=== PATIENT | male | born 1960 | race Two or more races ===

== ENCOUNTER 2023-08-10 21:28 | Emergency (ER) | payer MEDICARE, OTHER ==
[~2023-08-10] VITALS: Ht 182.9 cm; Wt 169.4 kg
[2023-08-10] MEDS ORDERED: COCAINE HCL 4% TOP SOL 4ML TOP ONE ×2 (22:14→22:15)
[2023-08-10] MEDS ORDERED: OXYMETAZOLINE HCL 0.05 % NASAL SPRAY 15ML EACHNOSTRI ONE (22:15)
[2023-08-10 22:41] LABS: Basophils # (auto) 0.1 10 ^3/uL (0-0.2); Basophils % (auto) 1.1 % (0.0-2.0); Eosinophils # (auto) 0.2 10 ^3/uL (0-0.8); Eosinophils % (auto) 2.5 % (0.0-7.0); Hematocrit 31.6 % (41.0-53.0); Hemoglobin 10.3 g/dL (13.5-17.5); Lymphocytes # (auto) 0.7 10 ^3/uL (0.4-5.4); Lymphocytes % (auto) 10.3 % (10.0-50.0); Mean Corpuscular Hemoglobin 29.3 pg (28.0-32.0); Mean Corpuscular Hgb Conc. 32.6 g/dL (32.0-36.0); Monocytes # (auto) 0.6 10 ^3/uL (0-1.3); Monocytes % (auto) 8.3 % (0.0-12.0); Neutrophils # (auto) 5.6 10 ^3/uL (1.6-8.6); Neutrophils % (auto) 77.8 % (37.0-80.0); Red Blood Cells 3.51 10^6/uL (4.5-5.90); Red Cell Distribution Width 18.9 % (11.8-14.3); White Blood Cell 7.1 10^3/uL (4.4-10.8)
[2023-08-10 22:53] LABS: INR 3.6 (0.9-1.15); Partial Thromboplastin Time 40.6 SEC (24.5-34.5); Prothrombin Time 34.8 sec (9.3-11.8)
[2023-08-10 22:55] LABS: Alanine Aminotransferase 37 U/L (7-40); Albumin 4.7 g/dL (3.2-4.8); Alkaline Phosphatase 67 U/L (46-116); Anion Gap 7 (5-15); Aspartate Aminotransferase 30 U/L (13-40); BUN/Creatinine Ratio 13.5 (10.0-20.0); Bilirubin, Total 1.2 mg/dL (0.2-1.0); Blood Urea Nitrogen 21 mg/dL (9-23); Calcium 9.2 mg/dL (8.7-10.4); Carbon Dioxide 27 mmol/L (20-30); Chloride 106 mmol/L (98-107); Glucose 124 mg/dL (74-106); Potassium 3.3 mmol/L (3.5-5.1); Sodium 140 mmol/L (136-145)
[2023-08-10 22:56] LABS: Total Protein 7.7 g/dL (5.7-8.2)
[2023-08-11] MEDS ORDERED: PHYTONADIONE (VIT K)10 MG/ML 1ML VIAL SUBCUT ONE (00:45)
[2023-08-11] MEDS ORDERED: POTASSIUM EFFERVESENT TAB 25 MEQ PO ONE (01:00)
[2023-08-11 01:36] VITALS: BP 125/72; PULSE 57; RESP 18; TEMP 98; O2SAT 96
== END 2023-08-11 01:41 | disposition home or self-care (01) ==
LOC: ER 21:28
DX: R04.0 Epistaxis (principal); D64.9 Anemia, unspecified; E78.5 Hyperlipidemia, unspecified; R79.89 Other specified abnormal findings of blood chemistry; I10 Essential (primary) hypertension; E11.9 Type 2 diabetes mellitus without complications
CPT/HCPCS: 30901; 36415; 80053; 85025; 85610; 85730; 93005; 96372; 99284; J3430

== ENCOUNTER 2023-08-13 08:07 | Emergency (ER) | payer MEDICARE, OTHER ==
[~2023-08-13] VITALS: Ht 182.9 cm; Wt 165.4 kg
[2023-08-13 08:18] VITALS: BP 133/62; PULSE 57; RESP 20; TEMP 98; O2SAT 95
[2023-08-13] MEDS ORDERED: OXYMETAZOLINE HCL 0.05 % NASAL SPRAY 15ML EACHNOSTRI ONE (09:15)
== END 2023-08-13 09:54 | disposition home or self-care (01) ==
LOC: ER 08:07
DX: T85.898D Other specified complication of other internal prosthetic devices, implants and grafts, subsequent encounter (principal); E11.9 Type 2 diabetes mellitus without complications; I10 Essential (primary) hypertension; Z88.8 Allergy status to other drugs, medicaments and biological substances

== ENCOUNTER → 2023-08-20 | Outpatient (CLI) | payer MEDICARE | END | disposition home or self-care (01) | LOC: LAB 10:28 | PROVIDERS: ATTEND Internal Medicine | DX: E11.42 Type 2 diabetes mellitus with diabetic polyneuropathy (principal); I48.0 Paroxysmal atrial fibrillation | CPT/HCPCS: 36415; 84132 ==

== ENCOUNTER → 2023-09-07 | Outpatient (CLI) | payer MEDICARE ==
[2023-09-07 11:28] LABS: Urine Bacteria NONE SEEN /hpf (None Seen); Urine Blood Negative /uL (Negative); Urine Clarity Clear (Clear); Urine Color Colorless (Yellow); Urine Hyaline Cast FEW /lpf (0 - 2); Urine Protein, UAD Negative (Negative); Urine Specific Gravity 1.008 (1.001-1.035); Urine Urobilinogen Normal (Negative); Urine WBC 1 /hpf (0 - 3); Urine pH 5.5 (5.0-8.0)
[2023-09-07 12:21] LABS: Alanine Aminotransferase 73 U/L (7-40); Albumin 4.4 g/dL (3.2-4.8); Alkaline Phosphatase 53 U/L (46-116); Anion Gap 7 (5-15); Aspartate Aminotransferase 50 U/L (13-40); BUN/Creatinine Ratio 12.2 (10.0-20.0); Bilirubin, Total 0.5 mg/dL (0.2-1.0); Blood Urea Nitrogen 16 mg/dL (9-23); Calcium 9.3 mg/dL (8.5-10.1); Carbon Dioxide 27 mmol/L (20-30); Chloride 107 mmol/L (98-107); Glucose 139 mg/dL (74-106); Potassium 3.7 mmol/L (3.5-5.1); Sodium 141 mmol/L (136-145)
== END | disposition home or self-care (01) ==
LOC: LAB 10:40
PROVIDERS: ATTEND Internal Medicine
DX: E11.22 Type 2 diabetes mellitus with diabetic chronic kidney disease (principal); N18.9 Chronic kidney disease, unspecified
CPT/HCPCS: 36415; 80053; 81001; 82043; 83036

== ENCOUNTER → 2023-11-02 | Outpatient (CLI) | payer MEDICARE ==
[2023-11-02 06:51] LABS: Urine Epithelial Cast None Seen /hpf (<5)
[2023-11-02 07:11] LABS: Basophils # (auto) 0.1 10 ^3/uL (0-0.2); Eosinophils # (auto) 0.2 10 ^3/uL (0-0.8); Eosinophils % (auto) 2.7 % (0.0-7.0); Hematocrit 36.3 % (41.0-53.0); Lymphocytes # (auto) 0.7 10 ^3/uL (0.4-5.4); Lymphocytes % (auto) 12.8 % (10.0-50.0); Mean Corpuscular Hemoglobin 30.1 pg (28.0-32.0); Mean Corpuscular Hgb Conc. 32.9 g/dL (32.0-36.0); Mean Corpuscular Volume 91.3 fL (80.0-100.0); Monocytes # (auto) 0.7 10 ^3/uL (0-1.3); Monocytes % (auto) 12.1 % (0.0-12.0); Neutrophils # (auto) 4.1 10 ^3/uL (1.6-8.6); Neutrophils % (auto) 71.4 % (37.0-80.0); Nucleated Red Blood Cells % 0.1 %; Red Blood Cells 3.98 10^6/uL (4.5-5.90); Red Cell Distribution Width 16.7 % (11.8-14.3); White Blood Cell 5.7 10^3/uL (4.4-10.8)
[2023-11-02 07:14] LABS: INR 2.12 (0.9-1.15); Partial Thromboplastin Time 35.2 SEC (24.5-34.5); Prothrombin Time 21.2 sec (9.3-11.8)
[2023-11-02 07:30] LABS: Urine Bacteria NONE SEEN /hpf (None Seen); Urine Blood Negative /uL (Negative); Urine Clarity HAZY (Clear); Urine Color Yellow (Yellow); Urine Protein, UAD 1+ (Negative); Urine Specific Gravity 1.022 (1.001-1.035); Urine Urobilinogen Normal (Negative); Urine WBC 7 /hpf (0 - 3)
[2023-11-02 07:44] LABS: Alanine Aminotransferase 50 U/L (7-40); Albumin 4.5 g/dL (3.2-4.8); Alkaline Phosphatase 58 U/L (46-116); Anion Gap 7 (5-15); Aspartate Aminotransferase 31 U/L (13-40); BUN/Creatinine Ratio 13.8 (10.0-20.0); Bilirubin, Total 0.5 mg/dL (0.2-1.0); Blood Urea Nitrogen 19 mg/dL (9-23); Calcium 9.5 mg/dL (8.5-10.1); Carbon Dioxide 27 mmol/L (20-30); Chloride 106 mmol/L (98-107); Cholesterol 118 mg/dL (< 200); Glucose 110 mg/dL (74-106); HDL Cholesterol 47 mg/dL (40-59); LDL Cholesterol 58 mg/dL (< 100); Potassium 4.1 mmol/L (3.5-5.1); Sodium 140 mmol/L (136-145); Total Protein 7.2 g/dL (5.7-8.2); Triglycerides 108 mg/dL (< 150)
== END | disposition home or self-care (01) ==
LOC: LAB 06:41
PROVIDERS: ATTEND Internal Medicine
DX: E11.22 Type 2 diabetes mellitus with diabetic chronic kidney disease (principal); N18.9 Chronic kidney disease, unspecified; I48.0 Paroxysmal atrial fibrillation; E55.9 Vitamin D deficiency, unspecified
CPT/HCPCS: 36415; 80053; 80061; 81001; 82043; 82274; 82306; 83036; 84443; 85025; 85610; 85730

== ENCOUNTER → 2023-11-17 | Outpatient (CLI) | payer MEDICARE ==
[2023-11-17 08:25] LABS: Basophils # (auto) 0.1 10 ^3/uL (0-0.2); Basophils % (auto) 1.1 % (0.0-2.0); Eosinophils # (auto) 0.2 10 ^3/uL (0-0.8); Eosinophils % (auto) 3.2 % (0.0-7.0); Hematocrit 35.3 % (41.0-53.0); Hemoglobin 11.4 g/dL (13.5-17.5); Lymphocytes # (auto) 0.5 10 ^3/uL (0.4-5.4); Lymphocytes % (auto) 9.9 % (10.0-50.0); Mean Corpuscular Hemoglobin 29.7 pg (28.0-32.0); Mean Corpuscular Hgb Conc. 32.3 g/dL (32.0-36.0); Mean Corpuscular Volume 91.8 fL (80.0-100.0); Monocytes # (auto) 0.5 10 ^3/uL (0-1.3); Monocytes % (auto) 9.9 % (0.0-12.0); Neutrophils # (auto) 3.8 10 ^3/uL (1.6-8.6); Neutrophils % (auto) 75.9 % (37.0-80.0); Nucleated Red Blood Cells % 0.1 %; Red Blood Cells 3.84 10^6/uL (4.5-5.90); Red Cell Distribution Width 16.7 % (11.8-14.3)
[2023-11-17 08:43] LABS: INR 1.44 (0.9-1.15); Prothrombin Time 14.8 sec (9.3-11.8)
[2023-11-17 08:53] LABS: Alanine Aminotransferase 47 U/L (7-40); Albumin 4.2 g/dL (3.2-4.8); Alkaline Phosphatase 53 U/L (46-116); Anion Gap 6 (5-15); Aspartate Aminotransferase 35 U/L (13-40); BUN/Creatinine Ratio 14.6 (10.0-20.0); Bilirubin, Total 0.8 mg/dL (0.2-1.0); Blood Urea Nitrogen 15 mg/dL (9-23); Calcium 9.3 mg/dL (8.5-10.1); Carbon Dioxide 27 mmol/L (20-30); Chloride 109 mmol/L (98-107); Glucose 119 mg/dL (74-106); Sodium 142 mmol/L (136-145); Total Protein 6.8 g/dL (5.7-8.2)
[2023-11-17 08:54] LABS: % Iron Saturation 21.2 % (20-55)
[2023-11-17 08:57] LABS: Carcinoembryonic Antigen 3.66 ng/mL (<=5.0); Folate (Folic Acid) 15.55 ng/mL (>5.38)
== END | disposition home or self-care (01) ==
LOC: LAB 07:49
PROVIDERS: ATTEND Internal Medicine Gastroenterology
DX: D64.9 Anemia, unspecified (principal); R97.8 Other abnormal tumor markers; D69.9 Hemorrhagic condition, unspecified
CPT/HCPCS: 36415; 80053; 82274; 82378; 82607; 82746; 83540; 83550; 85025; 85610

== ENCOUNTER 2024-10-01 09:55 | Emergency (ER) | payer MEDICARE ==
[~2024-10-01] VITALS: Ht 182.9 cm; Wt 162.0 kg
--- NOTE | 2024-10-01 11:14 | ED.PDOC ---
History of Present Illness HPI Comments This 64-year-old male presents secondary to now resolved nosebleed the left Raymond. He has had 3 over the last few weeks. He is on warfarin. As such, he presents here. He has no other complaints such as chest pain no shortness a breath, fever, chills, sweats, nausea or vomiting. Denies any palliative or pro vocative factors. Denies modifying factors. Denies radiation of his symptoms. Denies pain. Chief Complaint: Epistaxis Time Seen by MD: 10:12 Primary Care Provider: RAFAEL Allergies: Coded Allergies: Gabapentin (Verified Allergy, Unknown, 08/13/23) Latex (Verified Allergy, Unknown, 08/13/23) Mode of Arrival: Ambulatory Past Medical History PAST MEDICAL HISTORY: DM, HTN Surgical History: Denies all surgeries Family History Family History: Reviewed,noncontributory to illness Social History Smoker: Non-Smoker Alcohol: Denies ETOH Use Drugs: Denies Drug Use Lives In: Home Constitutional: denies: chills, diaphoresis, fatigue, fever, malaise, sweats, weakness, others EENTM: reports: nasal discharge, nose bleeding; denies: blurred vision, double vision, ear bleeding, ear discharge, ear drainage, ear pain, ear ringing, eye pain, eye redness, hearing loss, mouth pain, mouth swelling, nose congestion, nose pain, photophobia, tearing, throat pain, throat swelling, voice changes, others Respiratory: denies: cough, hemoptysis, orthopnea, SOB at rest, shortness of breath, SOB with excertion, stridor, wheezing, others Cardiovascular: reports: edema, left arm pain; denies: chest pain, diaphoresis, Dyspnea on exertion, irregular heart beat, lightheadedness, palpitations, PND, syncope, others Gastrointestinal: denies: abdominal pain, constipated, diarrhea, dysphagia, difficulty swallowing, hematemesis, melena, nausea, poor appetite, poor fluid intake, vomiting, others Genitourinary: denies: dysuria, frequency Neurological: denies: dizziness, fainting, headache, left sided numbness, left sided weakness, numbness, paresthesia, pre-existing deficit, right sided numbness, right sided weakness, seizure, speech problems, tingling, tremors, we akness, others Musculoskeletal: denies: back pain, gout, joint pain, joint swelling, muscle pain, muscle stiffness Integumetry: denies: bruises, change in color, lesions, wounds Allergic/Immunocompromised: denies: Difficulty Healing Hematologic/Lymphatic: denies: anemia Psychiatric: denies: anxiety, bipolar disorder Unable to Obtain due to: Altered Mental Status, Dementia Physical Exam General Appearance: No Apparent Distress, Normal HEENT: Normal ENT Inspection, Pharynx Normal, TMs Normal, NOT DONE Neck: Normal, Supple Respiratory: Chest Non-Tender, Lungs Clear, No Accessory Muscle Use, No Respiratory Distress, Normal Breath Sounds Cardiovascular: No Edema, No JVD, No Murmur, No Gallop, Normal Peripheral Pulses, Regular Rate/Rhythm Breast Exam: Deferred Gastrointestinal: Non Tender, Soft Genitalia: Deferred Pelvic: Deferred Rectal: Deferred Extremities: No calf tenderness, Normal capillary refill, Normal inspection, Normal range of motion, Non-tender, No pedal edema Neurologic: Alert, currency exchange specialist II-XII nml as Tested, No Motor Deficits, Normal Affect, Normal Mood, No Sensory Deficits Cerebellar Function: Normal Reflexes: NOT DONE Skin: Normal Color, Warm Lymphatic: NOT DONE Was a procedure done? Was a procedure done?: No Differential Dx Considerations may include: Anterior epistaxis, posterior epistaxis, mass, trauma X-Ray, Labs, Meds, VS Vital Signs Date Time Temp Pulse Resp B/P (MAP) Pulse Ox O2 Delivery O2 Flow Rate FiO2 10/01/24 10:11 97.8 67 19 120/76 (91) 92 Lab Test 10/01/24 10:43 Range/Units White Blood Count 7.2 4.4-10.8 10^3/uL Red Blood Count 3.40 L 4.5-5.90 10^6/uL Hemoglobin 10.5 L 13.5-17.5 g/dL Hematocrit 32.4 L 41.0-53.0 % Mean Corpuscular Volume 95.3 80.0-100.0 fL Mean Corpuscular Hemoglobin 30.8 28.0-32.0 pg Mean Corpuscular Hemoglobin Concent 32.3 32.0-36.0 g/dL Red Cell Distribution Width 17.5 H 11.8-14.3 % Platelet Count 142 140-450 10^3/uL Mean Platelet Volume 8.1 6.9-10.8 fL Neutrophils (%) (Auto) 83.8 H 37.0-80.0 % Lymphocytes (%) (Auto) 5.8 L 10.0-50.0 % Monocytes (%) (Auto) 6.6 0.0-12.0 % Eosinophils (%) (Auto) 3.1 0.0-7.0 % Basophils (%) (Auto) 0.7 0.0-2.0 % Neutrophils # (Auto) 6.0 1.6-8.6 10 ^3/uL Lymphocytes # (Auto) 0.4 0.4-5.4 10 ^3/uL Monocytes # (Auto) 0.5 0-1.3 10 ^3/uL Eosinophils # (Auto) 0.2 0-0.8 10 ^3/uL Basophils # (Auto) 0.1 0-0.2 10 ^3/uL Nucleated Red Blood Cells 0.0 % Prothrombin Time 19.2 H 9.3-11.8 sec Prothrombin Time INR 1.90 H 0.9-1.15 Sodium Level 143 136-145 mmol/L Potassium Level 4.1 3.5-5.1 mmol/L Chloride Level 110 H 98-107 mmol/L Carbon Dioxide Level 27 20-31 mmol/L Anion Gap 6 5-15 Blood Urea Nitrogen 18 9-23 mg/dL Creatinine 1.14 0.700-1.30 mg/dL Glomerular Filtration Rate Calc 72 >90 mL/min BUN/Creatinine Ratio 15.8 10.0-20.0 Serum Glucose 149 H 74-106 mg/dL Calcium Level 9.4 8.7-10.4 mg/dL Total Bilirubin 0.9 0.2-1.0 mg/dL Aspartate Amino Transferase (AST) 26 13-40 U/L Alanine Aminotransferase (ALT) 52 H 7-40 U/L Alkaline Phosphatase 61 46-116 U/L Total Protein 6.7 5.7-8.2 g/dL Albumin 4.0 3.2-4.8 g/dL X-Ray, Labs, Meds, VS Comment This 68-year-old male presents emergency room secondary to epistaxis now resolved. He was on warfarin. I was concerned the patient may have a substandard prolonged INR. However, is 1.9. Initially, the patient is not anemic. As he no longer has a nosebleed, he will be discharged home. He is asked to avoid touching his nose. He should follow up with PCP in the morning return to the ER for new/worrisome has worsening symptoms. Time of 1ST Reevaluation: 12:32 Reevaluation 1ST: Improved Patient Education/Counseling: Diagnosis, Treatment Family Education/Counseling: Diagnosis, Treatment Departure 1 Departure Time of Disposition: 12:25 Impression: Primary Impression: Acute anterior epistaxis Disposition: HOME / SELF CARE / HOMELESS Condition: Good Discharged With: Self, Spouse Critical Care Note Critical Care Time?: No Stability Stability form required: No Heart Score Heart Score: Heart Score Response (Comments) Value History N/A 0 EKG N/A 0 Age N/A 0 Risk Factors N/A 0 Troponin N/A 0 Total 0 VIVEK KAUR MD Oct 01, 2024 11:14
[2024-10-01 11:16] LABS: Basophils # (auto) 0.1 10 ^3/uL (0-0.2); Basophils % (auto) 0.7 % (0.0-2.0); Eosinophils # (auto) 0.2 10 ^3/uL (0-0.8); Eosinophils % (auto) 3.1 % (0.0-7.0); Hematocrit 32.4 % (41.0-53.0); Hemoglobin 10.5 g/dL (13.5-17.5); Lymphocytes # (auto) 0.4 10 ^3/uL (0.4-5.4); Lymphocytes % (auto) 5.8 % (10.0-50.0); Mean Corpuscular Hemoglobin 30.8 pg (28.0-32.0); Mean Corpuscular Hgb Conc. 32.3 g/dL (32.0-36.0); Mean Corpuscular Volume 95.3 fL (80.0-100.0); Monocytes # (auto) 0.5 10 ^3/uL (0-1.3); Monocytes % (auto) 6.6 % (0.0-12.0); Neutrophils % (auto) 83.8 % (37.0-80.0); Platelet Count (auto) 142 10^3/uL (140-450); Red Cell Distribution Width 17.5 % (11.8-14.3); White Blood Cell 7.2 10^3/uL (4.4-10.8)
[2024-10-01 11:32] LABS: Alkaline Phosphatase 61 U/L (46-116); Anion Gap 6 (5-15); Aspartate Aminotransferase 26 U/L (13-40); BUN/Creatinine Ratio 15.8 (10.0-20.0); Blood Urea Nitrogen 18 mg/dL (9-23); Calcium 9.4 mg/dL (8.7-10.4); Carbon Dioxide 27 mmol/L (20-31); Potassium 4.1 mmol/L (3.5-5.1); Sodium 143 mmol/L (136-145)
[2024-10-01 11:33] LABS: Alanine Aminotransferase 52 U/L (7-40); Bilirubin, Total 0.9 mg/dL (0.2-1.0); Chloride 110 mmol/L (98-107); Glucose 149 mg/dL (74-106); Total Protein 6.7 g/dL (5.7-8.2)
[2024-10-01 11:35] LABS: INR 1.9 (0.9-1.15); Prothrombin Time 19.2 sec (9.3-11.8)
[2024-10-01 14:09] VITALS: BP 122/60; PULSE 60; RESP 20; TEMP 97.8; O2SAT 100
== END 2024-10-01 14:11 | disposition home or self-care (01) ==
LOC: ER 09:55
DX: R04.0 Epistaxis (principal); I10 Essential (primary) hypertension; E11.9 Type 2 diabetes mellitus without complications; Z79.01 Long term (current) use of anticoagulants; Z88.8 Allergy status to other drugs, medicaments and biological substances
CPT/HCPCS: 36415; 80053; 85025; 85610

== ENCOUNTER 2024-11-22 13:48 | Inpatient (IN) | payer MEDICARE, OTHER ==
[~2024-11-22] VITALS: Ht 185.4 cm; Wt 148.1 kg
--- NOTE | 2024-11-22 14:21 | DVH ---
CHEST RADIOGRAPH Indication: sob Technique: Frontal and lateral view of the chest was obtained Comparison: None FINDINGS: Lines and Tubes: Median sternotomy. Cardiac loop recorder device. Lungs: Pulmonary vascular congestion Pleura: No effusion. No pneumothorax. Cardiomediastinal contours: Cardiomegaly Bones: Unremarkable IMPRESSION: Mild pulmonary vascular congestion.
--- NOTE | 2024-11-22 14:23 | ED.PDOC ---
SOB-HPI HPI Comments This is a 64-year-old male who in with chief complaint of shortness a breath. The patient states that he has been having worsening shortness a breath for approximately two months. He also has had some right leg swelling somewhat off and on. He has has a history of DVT in the past. He is now also having some chest tightness somewhat off and on. The patient denies any fever, chills, nausea, vomiting or diarrhea. He is currently on warfarin for the DVT. When the patient arrived he had an oxygen saturation of 84% on room air. The patient was immediately placed on 4 L nasal cannula and his oxygen saturation went up to 95%. He was able to ambulate but gets very winded when he walks. Chief Complaint: Shortness of Breath Time Seen by MD: 13:56 Primary Care Provider: RAFAEL Ponce notes: Nurses Notes, Medications, Allergies (Allergies listed above) Information Source: Patient Mode of Arrival: Ambulatory Severity: Moderate Timing: Weeks Duration: Since onset Context: At Rest PE Risk Factors: None History of: CHF Prehospital treatment: None Modifying Factors: Exertion, Laying flat Associated Signs and Symptoms: Chest Pain, Leg Swelling Quality: Pressure, Tightness Radiation: No Radiation Location: Substernal Past Medical History PAST MEDICAL HISTORY: CAD, CHF, DM, High Lipids, HTN Past Medical History (Other): Right leg DVT Surgical History: Appendectomy, CABG, PTCA, Tonsillectomy Surgical History (Other): Right knee surgery, cataract surgery, bladder surgery Family History Family History: Family hx of heart catherine Social History Smoker: Non-Smoker Alcohol: Denies ETOH Use Drugs: Denies Drug Use Lives In: Home Constitutional: denies: chills, diaphoresis, fatigue, fever, malaise, sweats, weakness, others EENTM: denies: blurred vision, double vision, ear bleeding, ear discharge, ear drainage, ear pain, ear ringing, eye pain, eye redness, hearing loss, mouth pain, mouth swelling, nasal discharge, nose bleeding, nose congestion, nose pain, photophobia, tearing, throat pain, throat swelling, voice changes, others Respiratory: reports: shortness of breath; denies: cough, hemoptysis, orthopnea, SOB at rest, SOB with excertion, stridor, wheezing, others Cardiovascular: reports: chest pain; denies: dizzy spells, diaphoresis, Dyspnea on exertion, edema, irregular heart beat, left arm pain, lightheadedness, palpitations, PND, syncope, others Gastrointestinal: denies: abdomen distended, abdominal pain, blood streaked bowels, constipated, diarrhea, dysphagia, difficulty swallowing, hematemesis, melena, nausea, poor appetite, poor fluid intake, rectal bleeding, rectal pain, vomiting, others Genitourinary: denies: burning, dysuria, flank pain, frequency, hematuria, incontinence, penile discharge, penile sore, pain, testicle pain, testicle swelling, urgency, others Neurological: reports: others (Right leg swelling); denies: dizziness, fainting, headache, left sided numbness, left sided weakness, numbness, paresthesia, pre-existing deficit, right sided numbness, right sided weakness, seizure, speech problems, tingling, tremors, weakness Musculoskeletal: denies: back pain, gout, joint pain, joint swelling, muscle pain, muscle stiffness, neck pain, others Integumetry: denies: bruises, change in color, change in hair/nails, dryness, laceration, lesions, lumps, rash, wounds, others Allergic/Immunocompromised: denies: Difficulty Healing, Frequent Infections, Hives, Itching, others Hematologic/Lymphatic: denies: anemia, blood clots, easy bleeding, easy bruising, swollen glands, others Endocrine: denies: excessive hunger, excessive sweating, excessive thirst, excessive urination, flushing, intolerance to cold, intolerance to heat, unexplained weight gain, unexplained weight loss, others Psychiatric: denies: anxiety, bipolar disorder, depression, hopeless, panic disorder, schizophrenia, sleepless, suicidal, others Physical Exam General Appearance: Moderate Distress, Obese HEENT: Normal ENT Inspection, Pharynx Normal, TMs Normal Neck: Full Range of Motion, Non-Tender, Normal, Normal Inspection Respiratory: Chest Non-Tender, Lungs Clear, No Accessory Muscle Use, No Respiratory Distress, Normal Breath Sounds Cardiovascular: No Edema, No JVD, No Murmur, No Gallop, Normal Peripheral Pulses, Regular Rate/Rhythm Breast Exam: Deferred Gastrointestinal: No Organomegaly, Non Tender, No Pulsatile Mass, Normal Bowel Sounds, Soft Genitalia: Deferred Pelvic: Deferred Rectal: Deferred Extremities: No calf tenderness, Normal capillary refill, Pedal edema, Other (Some redness to the right lower extremity) Musculoskeletal : Apperance: Normal Neurologic: Alert, low pressure kettle operator II-XII nml as Tested, Motor Weakness, Normal Affect, Normal Mood, No Sensory Deficits Cerebellar Function: Normal Reflexes: Normal Skin: Dry, Normal Color, Warm Lymphatic: No Adenopathy EKG EKG : Pulse Rate (adult): 54 [place]isson: Normal Cardiac Rhythm: SB Block: None ST: Nonsp Was a procedure done? Was a procedure done?: No Differential Dx Differential Diagnosis: Asthma, Bronchitis, CHF, COPD, Myocardial infarction X-Ray, Labs, Meds, VS Vital Signs Date Time Temp Pulse Resp B/P (MAP) Pulse Ox O2 Delivery O2 Flow Rate FiO2 11/22/24 15:12 51 19 100 Nasal Cannula* 4 36 11/22/24 15:07 116/57 11/22/24 15:06 52 19 125/68 (87) 100 11/22/24 14:32 98.2 51 19 116/57 (76) 100 98.2 11/22/24 14:32 51 19 100 Nasal Cannula 4.0 11/22/24 14:23 54 11/22/24 14:04 97.5 54 24 134/54 (80) 84 11/22/24 13:57 54 Lab Test 11/22/24 15:06 11/22/24 14:25 Range/Units White Blood Count 5.4 4.4-10.8 10^3/uL Red Blood Count 3.49 L 4.5-5.90 10^6/uL Hemoglobin 10.6 L 13.5-17.5 g/dL Hematocrit 32.9 L 41.0-53.0 % Mean Corpuscular Volume 94.4 80.0-100.0 fL Mean Corpuscular Hemoglobin 30.4 28.0-32.0 pg Mean Corpuscular Hemoglobin Concent 32.2 32.0-36.0 g/dL Red Cell Distribution Width 17.8 H 11.8-14.3 % Platelet Count 138 L 140-450 10^3/uL Mean Platelet Volume 8.3 6.9-10.8 fL Neutrophils (%) (Auto) 81.1 H 37.0-80.0 % Lymphocytes (%) (Auto) 8.2 L 10.0-50.0 % Monocytes (%) (Auto) 8.4 0.0-12.0 % Eosinophils (%) (Auto) 1.6 0.0-7.0 % Basophils (%) (Auto) 0.7 0.0-2.0 % Neutrophils # (Auto) 4.3 1.6-8.6 10 ^3/uL Lymphocytes # (Auto) 0.4 0.4-5.4 10 ^3/uL Monocytes # (Auto) 0.5 0-1.3 10 ^3/uL Eosinophils # (Auto) 0.1 0-0.8 10 ^3/uL Basophils # (Auto) 0 0-0.2 10 ^3/uL Nucleated Red Blood Cells 0.1 % D-Dimer, Quantitative 0.43 0.0-0.49 mg/L FEU Sodium Level 143 136-145 mmol/L Potassium Level 4.3 3.5-5.1 mmol/L Chloride Level 106 98-107 mmol/L Carbon Dioxide Level 28 20-31 mmol/L Anion Gap 9 5-15 Blood Urea Nitrogen 26 H 9-23 mg/dL Creatinine 1.31 H 0.700-1.30 mg/dL Glomerular Filtration Rate Calc 61 >90 mL/min BUN/Creatinine Ratio 19.8 10.0-20.0 Serum Glucose 88 74-106 mg/dL Calcium Level 9.8 8.7-10.4 mg/dL Troponin I High Sensitivity 17 </=54 ng/L B-Type Natriuretic Peptide 121.78 0-100 pg/mL Urine Color Colorless Yellow Urine Clarity Clear Clear Urine pH 6.5 5.0-9.0 Urine Specific [place] 1.005 1.001-1.035 Urine Protein Negative Negative Urine Ketones Negative Negative Urine Blood Negative Negative /uL Urine Nitrite Negative Negative Urine Bilirubin Negative Negative Urine Urobilinogen Normal Negative mg/dL Urine Leukocyte Esterase Negative Negative /uL Urine RBC <1 0 - 3 /hpf Urine Microscopic WBC < 1 0-3 /HPF Urine Squamous Epithelial Cells Few <5 /hpf Urine Bacteria None seen None Seen /hpf Urine Glucose 2+ H Normal mg/dL Influenza Type A Antigen Negative Negative Influenza Type B Antigen Negative Negative SARS-CoV-2 Antigen (Rapid) Negative NEGATIVE Current Medications Medications (Trade) Dose Ordered Sig/Nichol Route Start Time Stop Time Status Last Admin Furosemide (Lasix Injection) 40 mg ONCE ONCE IV 11/22/24 14:15 11/22/24 14:16 DC 11/22/24 15:07 Bilateral lower extremity venous duplex Impression: No right or left femoropopliteal venous thrombosis. CHEST RADIOGRAPH IMPRESSION: Mild pulmonary vascular congestion. IV Hep-Lock was established The patient was given Lasix 40 mg IV push At this time, the patient has a COVID test as well as influenza a and influenza B which are negative The CBC shows mild anemia with a hemoglobin of 10.6 The BUN is 26 and the creatinine is 1.31 At this time the patient was being admitted with a diagnosis of acute on chronic diastolic heart failure The urine test is negative Images Reviewed?: Images reviewed and evaluated by me Time of 1ST Reevaluation: 14:29 Reevaluation 1ST: Unchanged Patient Education/Counseling: Diagnosis, Treatment, Prognosis Family Education/Counseling: No Family Present Departure 1 Departure Time of Disposition: 15:15 Impression: Primary Impression: Acute on chronic diastolic heart failure Disposition: ADMITTED INPATIENT Admit to: Tele Condition: Fair Critical Care Note Critical Care Time?: Yes (45 min-critical care time only) Stability Stability form required: Yes Unstable for transfer: Telemetry monitoring (Telemetry monitoring required), ED Physician Assesment (Clinical assesment) Heart Score Heart Score: Heart Score Response (Comments) Value History Moderate Suspicious 1 EKG Normal 0 Age 45-64 1 Risk Factors >3 or Hx ASHD 2 Troponin Normal limit 0 Total 4 I personally scribed for MELINA PENDLETON MD ([email or web address]) on 11/22/24 at 15:10. Electronically submitted by Sarah Child ([email or web address]). MELINA PENDLETON MD Nov 22, 2024 14:22
--- NOTE | 2024-11-22 15:02 | DVH ---
Bilateral lower extremity venous duplex Clinical History: swelling Comparison: None Technique: Duplex Doppler evaluation of the deep venous systems of both lower extremities from the common femora l veins to the popliteal veins including color Doppler and spectral/pulsed waveform analysis was perf ormed. Findings: RIGHT SIDE: The common femoral vein demonstrates appropriate compressibility and waveform variability. There is compressibility/patency of the great saphenous vein at the proximal thigh. The femoral vein demonstrates appropriate compressibility and waveform variability. The deep femoral vein demonstrates appropriate compressibility and waveform variability. The popliteal vein demonstrates appropriate compressibility and waveform variability. There is normal compressibility at the tibioperoneal trunk. LEFT SIDE: The common femoral vein demonstrates appropriate compressibility and waveform variability. There is compressibility/patency of the great saphenous vein at the proximal thigh. The femoral vein demonstrates appropriate compressibility and waveform variability. The deep femoral vein demonstrates appropriate compressibility and waveform variability. The popliteal vein demonstrates appropriate compressibility and waveform variability. There is normal compressibility at the tibioperoneal trunk. Impression: No right or left femoropopliteal venous thrombosis.
[2024-11-22] MEDS: FUROSEMIDE 40 MG/4 ML VIAL IV ONE (15:07)
[2024-11-22 15:12] VITALS: PULSE 51; RESP 19; O2SAT 100
[2024-11-22 15:20] LABS: COVID19 ANTIGEN SOFIA FIA NEGATIVE (NEGATIVE); Rapid Influenza A Negative (Negative); Rapid Influenza B Negative (Negative)
[2024-11-22 15:23] LABS: Basophils # (auto) 0 10 ^3/uL (0-0.2); Basophils % (auto) 0.7 % (0.0-2.0); Eosinophils # (auto) 0.1 10 ^3/uL (0-0.8); Eosinophils % (auto) 1.6 % (0.0-7.0); Hematocrit 32.9 % (41.0-53.0); Hemoglobin 10.6 g/dL (13.5-17.5); Lymphocytes # (auto) 0.4 10 ^3/uL (0.4-5.4); Lymphocytes % (auto) 8.2 % (10.0-50.0); Mean Corpuscular Hemoglobin 30.4 pg (28.0-32.0); Mean Corpuscular Hgb Conc. 32.2 g/dL (32.0-36.0); Mean Corpuscular Volume 94.4 fL (80.0-100.0); Monocytes # (auto) 0.5 10 ^3/uL (0-1.3); Monocytes % (auto) 8.4 % (0.0-12.0); Neutrophils # (auto) 4.3 10 ^3/uL (1.6-8.6); Neutrophils % (auto) 81.1 % (37.0-80.0); Nucleated Red Blood Cells % 0.1 %; Platelet Count (auto) 138 10^3/uL (140-450); Red Blood Cells 3.49 10^6/uL (4.5-5.90); Red Cell Distribution Width 17.8 % (11.8-14.3); White Blood Cell 5.4 10^3/uL (4.4-10.8)
[2024-11-22 15:37] LABS: Chloride 106 mmol/L (98-107); Potassium 4.3 mmol/L (3.5-5.1); Sodium 143 mmol/L (136-145)
[2024-11-22 15:38] LABS: Anion Gap 9 (5-15); Calcium 9.8 mg/dL (8.7-10.4); Carbon Dioxide 28 mmol/L (20-31)
[2024-11-22 15:41] LABS: Urine Bacteria None Seen /hpf (None Seen)
[2024-11-22 15:43] LABS: BUN/Creatinine Ratio 19.8 (10.0-20.0); Blood Urea Nitrogen 26 mg/dL (9-23); Glucose 88 mg/dL (74-106)
[2024-11-22 15:45] LABS: Urine Blood Negative /uL (Negative); Urine Clarity Clear (Clear); Urine Color Colorless (Yellow); Urine Protein, UAD Negative (Negative); Urine Specific Gravity 1.005 (1.001-1.035); Urine Squamous Epithelial Cell FEW /hpf (<5); Urine Urobilinogen Normal (Negative); Urine WBC < 1 /HPF (0-3); Urine pH 6.5 (5.0-9.0)
--- NOTE | 2024-11-22 18:01 | ECG ---
[facility] Test Date: 2024-11-22 Test Time: 13:57:49 Pat Name: YAMILEX VELÁZQUEZ Department: ER Room: 0212T Gender: M Director [employer]: DANIE : 1960 Requested By: MELINA PENDLETON Order Number: [id number] Reading MD: Turner Billingsley Measurements Intervals [place] Rate: 54 P: 75 MI: 288 QRS: 158 QRSD: 200 T: 93 QT: 553 QTc: 525 Interpretive Statements Sinus rhythm Prolonged MI interval Nonspecific intraventricular conduction delay Borderline T abnormalities, lateral leads Baseline wander in lead(s) V3 Electronically Signed On 11-23-2024 12:00:28 PST by Turner Billingsley Please click the below link to view image of tracing.
[2024-11-22] MEDS ORDERED: ACETAMINOPHEN 325 MG TAB PO PRN (20:00)
[2024-11-22] MEDS ORDERED: ONDANSETRON HCL 4 MG/2 ML VIAL IV PRN (20:00)
[2024-11-22] MEDS ORDERED: TEMAZEPAM 15 MG CAP PO PRN (20:00)
[2024-11-22] MEDS ORDERED: DEXTROSE (50%) 50ML SYRG IV PRN (20:00)
[2024-11-22 20:27] LABS: INR 2.01 (0.9-1.15); Partial Thromboplastin Time 33.4 SEC (24.5-34.5); Prothrombin Time 19.9 sec (9.3-11.8)
[2024-11-22] MEDS: hydrALAZINE HCL 25 MG TAB PO SCH (22:00)
[2024-11-22] MEDS ORDERED: ATORVASTATIN 20 MG TAB PO SCH (22:00)
[2024-11-22] MEDS: InsuLIN REG 1unit/0.01ml Soln (100units/ml) SC SCH (22:00)
[2024-11-22] MEDS: ATORVASTATIN 20 MG TAB PO SCH (22:00)
[2024-11-22 23:51] VITALS: BP 105/46; PULSE 50; RESP 16; TEMP 97.3; O2SAT 95
[2024-11-23] VITALS (10 sets, daily range): BP systolic 109–131; BP diastolic 61–72; PULSE 45–64; RESP 16–22; TEMP 97.1–98.1; O2SAT 90–99
[2024-11-23] MEDS: ACCU-CHEK COMFORT CURVE STRIP VI SCH (01:43)
[2024-11-23] MEDS ORDERED: METF-370 PO (02:43)
[2024-11-23] MEDS ORDERED: LOS25T PO (02:43)
[2024-11-23] MEDS ORDERED: PRAM1.5T25 (02:43)
[2024-11-23] MEDS ORDERED: FERR1TAB8 PO (02:43)
[2024-11-23] MEDS ORDERED: WARF-66 (02:43)
[2024-11-23] MEDS ORDERED: ROSU40TA47 PO (02:43)
[2024-11-23] MEDS ORDERED: SERT-206 (02:43)
[2024-11-23] MEDS ORDERED: ASPI-325 PO (02:43)
[2024-11-23] MEDS ORDERED: EMPA1TAB (02:43)
[2024-11-23] MEDS ORDERED: DOCU-265 PO (02:43)
[2024-11-23] MEDS ORDERED: POTA-180 (02:43)
[2024-11-23] MEDS ORDERED: PANT40TA57 (02:43)
[2024-11-23] MEDS ORDERED: ISOS1TAB28 PO (02:43)
[2024-11-23] MEDS ORDERED: AMIO200T13 GT (02:43)
[2024-11-23] MEDS ORDERED: NITR0.4S29 SL (02:47)
[2024-11-23] MEDS ORDERED: PANT40TA2 PO (02:47)
[2024-11-23] MEDS ORDERED: ASCO500C49 PO (02:47)
[2024-11-23] MEDS ORDERED: CYAN-17 PO (02:58)
[2024-11-23] MEDS ORDERED: CHOL500046 PO (02:59)
[2024-11-23] MEDS ORDERED: BUME2TAB5 PO (03:04)
--- NOTE | 2024-11-23 05:01 | DVHHP2 ---
History of Present Illness Reason for Visit: Shortness for breath History of Present Illness 64-year-old male presents for evaluation of shortness for breath. Patient reports symptoms have been ongoing for the past two months. He states that over the past two days he has noted worsening shortness for breath especially with ex ertion he also reports bilateral lower extremity swelling worse on the right. He denies fever or chills. No other acute complaints reported. Past Medical History Dyslipidemia, hypertension, diabetes mellitus, CAD, CHF Past Surgical History PTCA, tonsillectomy, CABG, appendectomy, right knee surgery, bladder surgery Family History Heart disease Smoke: No ALCOHOL: none Drugs: None Lives: with Family Review of Systems Review of Systems Review of systems are currently negative otherwise addressed in HPI. Allergies: Coded Allergies: Colchicine (Verified Allergy, Unknown, 11/22/24) Diltiazem (Verified Allergy, Unknown, 11/22/24) Gabapentin (Verified Allergy, Unknown, 08/13/23) Latex (Verified Allergy, Unknown, 08/13/23) Metoprolol (Verified Allergy, Unknown, 11/22/24) Medications Current Medications Medications Dose Ordered Sig/Nichol Route Start Time Stop Time Status Last Admin Dose Admin Furosemide 20 mg DAILY IV 11/23/24 10:00 Amiodarone HCl 200 mg DAILY PO 11/23/24 10:00 Hydralazine HCl 25 mg Q12HR PO 11/22/24 22:00 11/22/24 22:00 25 MG Atorvastatin Calcium 40 mg HS PO 11/22/24 22:00 11/22/24 22:00 40 MG Empaglifozin 10 mg DAILY PO 11/23/24 10:00 Sertraline HCl 50 mg DAILY PO 11/23/24 10:00 Isosorbide Mononitrate 30 mg DAILY PO 11/23/24 10:00 Warfarin Sodium RX PROTOCOL PER PHARMACY PO 11/22/24 20:00 Diagnostic Test (Pha) 1 strip ACHS 11/22/24 22:00 11/23/24 01:43 1 STRIP Insulin Human Regular ACHS SC 11/22/24 22:00 11/22/24 22:00 2 UNITS Dextrose 50 ml UD PRN IV 11/22/24 20:00 Temazepam 15 mg QHSP PRN PO 11/22/24 20:00 Ondansetron HCl 4 mg Q4HP PRN IV 11/22/24 20:00 Acetaminophen 650 mg Q6HP PRN PO 11/22/24 20:00 Exam Vital Signs Vital Signs Date Time Temp Pulse Resp B/P (MAP) Pulse Ox O2 Delivery O2 Flow Rate FiO2 11/23/24 00:21 50 19 Nasal Cannula* 2 28 11/22/24 23:51 97.3 105/46 (65) 95 97.3 Exam Gen: 64-year-old male in mild distress Skin: Warm, dry, normal color and texture, no rash. HEENT: Normocephalic atraumatic, mucous membranes moist and pink. Neck: Cervical and supraclavicular nodes normal without enlargement, trachea is midline, thyroid gland is normal without masses. Pulmonary: Clear to auscultation and percussion bilaterally. Cardiac: Regular rate and rhythm. No murmur Abdomen: Soft, nontender, nondistended, bowel sounds present all 4 quadrants, no guarding, no rigidity, no organomegaly. Extremities: No cyanosis, clubbing, lower extremity edema greater on the right Neuro: Cranial nerves II through XII grossly intact, normal affect and speech, no focal motor deficits. Labs/Xrays ORDERING PHYSICIAN: MELINA PENDLETON MD PROCEDURE(s): BLDVT - BiLat Lower DVT REASON: swelling ORDER NUMBER(s): [id number], ACCESSION NUMBER(s): [id number] Bilateral lower extremity venous duplex Clinical History: swelling Comparison: None Technique: Duplex Doppler evaluation of the deep venous systems of both lower extremities from the common femoral veins to the popliteal veins including color Doppler and spectral/pulsed waveform analysis was performed. Findings: RIGHT SIDE: The common femoral vein demonstrates appropriate compressibility and waveform variability. There is compressibility/patency of the great saphenous vein at the proximal thigh. The femoral vein demonstrates appropriate compressibility and waveform variability. The deep femoral vein demonstrates appropriate compressibility and waveform variability. The popliteal vein demonstrates appropriate compressibility and waveform variability. There is normal compressibility at the tibioperoneal trunk. LEFT SIDE: The common femoral vein demonstrates appropriate compressibility and waveform variability. There is compressibility/patency of the great saphenous vein at the proximal thigh. The femoral vein demonstrates appropriate compressibility and waveform variability. The deep femoral vein demonstrates appropriate compressibility and waveform variability. The popliteal vein demonstrates appropriate compressibility and waveform variability. There is normal compressibility at the tibioperoneal trunk. Impression: No right or left femoropopliteal venous thrombosis. ATED BY: REUBEN ESPAÑA MD ORDERING PHYSICIAN: MELINA PENDLETON MD PROCEDURE(s): CXR2 - CHEST TWO VIEWS ROUTINE REASON: sob ORDER NUMBER(s): [id number], ACCESSION NUMBER(s): [id number] CHEST RADIOGRAPH Indication: sob Technique: Frontal and lateral view of the chest was obtained Comparison: None FINDINGS: Lines and Tubes: Median sternotomy. Cardiac loop recorder device. Lungs: Pulmonary vascular congestion Pleura: No effusion. No pneumothorax. Cardiomediastinal contours: Cardiomegaly Bones: Unremarkable IMPRESSION: Mild pulmonary vascular congestion. Labs Test 11/23/24 01:32 11/22/24 20:03 11/22/24 18:03 11/22/24 15:06 Range/Units POC Glucose 149 H 70-106 mg/dl Prothrombin Time 19.9 H 9.3-11.8 sec Prothrombin Time INR 2.01 H 0.9-1.15 Activated Partial Thromboplast Time 33.4 24.5-34.5 SEC Troponin I High Sensitivity 20 </=54 ng/L White Blood Count 5.4 4.4-10.8 10^3/uL Red Blood Count 3.49 L 4.5-5.90 10^6/uL Hemoglobin 10.6 L 13.5-17.5 g/dL Hematocrit 32.9 L 41.0-53.0 % Mean Corpuscular Volume 94.4 80.0-100.0 fL Mean Corpuscular Hemoglobin 30.4 28.0-32.0 pg Mean Corpuscular Hemoglobin Concent 32.2 32.0-36.0 g/dL Red Cell Distribution Width 17.8 H 11.8-14.3 % Platelet Count 138 L 140-450 10^3/uL Mean Platelet Volume 8.3 6.9-10.8 fL Neutrophils (%) (Auto) 81.1 H 37.0-80.0 % Lymphocytes (%) (Auto) 8.2 L 10.0-50.0 % Monocytes (%) (Auto) 8.4 0.0-12.0 % Eosinophils (%) (Auto) 1.6 0.0-7.0 % Basophils (%) (Auto) 0.7 0.0-2.0 % Neutrophils # (Auto) 4.3 1.6-8.6 10 ^3/uL Lymphocytes # (Auto) 0.4 0.4-5.4 10 ^3/uL Monocytes # (Auto) 0.5 0-1.3 10 ^3/uL Eosinophils # (Auto) 0.1 0-0.8 10 ^3/uL Basophils # (Auto) 0 0-0.2 10 ^3/uL Nucleated Red Blood Cells 0.1 % D-Dimer, Quantitative 0.43 0.0-0.49 mg/L FEU Sodium Level 143 136-145 mmol/L Potassium Level 4.3 3.5-5.1 mmol/L Chloride Level 106 98-107 mmol/L Carbon Dioxide Level 28 20-31 mmol/L Anion Gap 9 5-15 Blood Urea Nitrogen 26 H 9-23 mg/dL Creatinine 1.31 H 0.700-1.30 mg/dL Glomerular Filtration Rate Calc 61 >90 mL/min BUN/Creatinine Ratio 19.8 10.0-20.0 Serum Glucose 88 74-106 mg/dL Calcium Level 9.8 8.7-10.4 mg/dL B-Type Natriuretic Peptide 121.78 0-100 pg/mL Test 11/22/24 14:25 Range/Units Urine Color Colorless Yellow Urine Clarity Clear Clear Urine pH 6.5 5.0-9.[address] [place] 1.005 1.001-1.035 Urine Protein Negative Negative Urine Ketones Negative Negative Urine Blood Negative Negative /uL Urine Nitrite Negative Negative Urine Bilirubin Negative Negative Urine Urobilinogen Normal Negative mg/dL Urine Leukocyte Esterase Negative Negative /uL Urine RBC <1 0 - 3 /hpf Urine Microscopic WBC < 1 0-3 /HPF Urine Squamous Epithelial Cells Few <5 /hpf Urine Bacteria None seen None Seen /hpf Urine Glucose 2+ H Normal mg/dL Influenza Type A Antigen Negative Negative Influenza Type B Antigen Negative Negative SARS-CoV-2 Antigen (Rapid) Negative NEGATIVE Assessment/Plan Assessment/Plan Assessment Acute on chronic congestive heart failure Diabetes mellitus Hypertension Status post CABG Secondary coagulopathy Plan Admit the patient to Med surge to the hospitalist Cardiology consult Echocardiogram pending Resume home medications Continue treatment per orders. Plan discussed with: Patient My Orders Orders - GIANCARLO MILLER Procedure Category Date Status Time Furosemide Injection PHA 11/23/24 In Process (Lasix Injection) 10:00 Amiodarone Tablet PHA 11/23/24 In Process (Cordarone Tablet) 10:00 Hydralazine Hcl PHA 11/22/24 In Process Tablet (Apresoline 22:00 Atorvastatin (Lipitor) PHA 11/22/24 In Process 22:00 Empagliflozin PHA 11/23/24 In Process (Jardiance) 10:00 Sertraline Hcl PHA 11/23/24 In Process (Zoloft) 10:00 Isosorbide PHA 11/23/24 In Process Mononitrate Tablet 10:00 Warfarin Per Rx PHA 11/22/24 In Process Protocol (Coumadin 20:00 * Cardiology Consult CONS 11/22/24 Transmitted 19:50 Basic Metabolic Panel LAB 11/23/24 Logged 04:00 Glucose Blood PHA 11/22/24 In Process (Accu-Chek Comfort 22:00 Insulin R (Human) PHA 11/22/24 In Process (Insulin R) 22:00 Dextrose 50% Syringe PHA 11/22/24 In Process 20:00 Admit ADMIT 11/22/24 Transmitted 19:50 Temazepam (Restoril) PHA 11/22/24 In Process 20:00 Ondansetron Hcl PHA 11/22/24 In Process (Zofran) 20:00 Cardiac DIET 11/23/24 Transmitted Diet-2gna,Lofat,Lochol Breakfast Echo 2d Mode Cardiac US 11/22/24 Logged DOP 19:50 Condition: Stable JENNIFER 11/22/24 In Process 19:50 Acetaminophen Tablet PHA 11/22/24 In Process (Tylenol Tablet) 20:00 Bedrest With Bathroom JENNIFER 11/22/24 In Process Privileg 19:50 Date of Service: Nov 22, 2024 Billing Provider: GIANCARLO MILLER Common Visit Codes: [id number] INP/OBS CARE (HIGH) GIANCARLO MILLER Nov 23, 2024 05:01
[2024-11-23 06:38] LABS: Chloride 106 mmol/L (98-107); Potassium 3.7 mmol/L (3.5-5.1); Sodium 142 mmol/L (136-145)
[2024-11-23 06:39] LABS: Anion Gap 7 (5-15); Calcium 9.7 mg/dL (8.7-10.4); Carbon Dioxide 29 mmol/L (20-31)
[2024-11-23 06:44] LABS: BUN/Creatinine Ratio 18.2 (10.0-20.0); Blood Urea Nitrogen 25 mg/dL (9-23); Glucose 136 mg/dL (74-106)
[2024-11-23] MEDS: EMPAGLIFLOZIN 10 MG TAB PO SCH (08:32)
[2024-11-23] MEDS: ISOSORBIDE MONONITRATE ER 60 MG TAB PO SCH (08:32)
[2024-11-23] MEDS: AMIODARONE HCL 200 MG TAB PO SCH (08:32)
[2024-11-23] MEDS: SERTRALINE HCL 50 MG TAB PO SCH (08:33)
[2024-11-23] MEDS: FUROSEMIDE 20 MG/2 ML VIAL IV SCH ×2 (08:33→16:08)
[2024-11-23 09:06] LABS: Magnesium 2.4 mg/dL (1.6-2.6)
[2024-11-23] MEDS: FUROSEMIDE 40 MG/4 ML VIAL IV ONE (09:47)
--- NOTE | 2024-11-23 09:50 | DVHCONRES ---
Date Seen: Nov 23, 2024 Resident Creating Document: BHAVIN SANTANA RESIDENT Referring Physician LAVERNE Vieyra Reason for Consultation CHF History of Present Illness This is a 64-year-old male who presents to the ED with chief complain of shortness of Breath. He has a past medical history relevant for hypertension, dyslipidemia, type 2 diabetes, coronary artery disease, CHF, history of right leg DVT, sleep apnea. He has a past surgical history relevant for CABG in 2009, PTCA/stent x1 in 2012, tonsillectomy, appendectomy, right knee surgery, bladder surgery Use family history of heart disease Past social history: Denies smoking, alcohol or drug abuse. Home meds: Amiodarone 200 mg p.o. q.d., aspirin 81 mg p.o. q.d., bumetanide 2 mg p.o. q.d., Jardiance 10 mg p.o. q.d., isosorbide mononitrate 30 mg p.o. q.d., losartan 25 mg p.o. q.d., metformin 500 mg p.o. b.i.d., Protonix 40 mg p.o. q.d., rosuvastatin 40 mg p.o. q.d., warfarin 5 mg p.o. q.d., sertraline 50 mg p.o. q.d., pramipexole 1.5 mg p.o. q.d. Patient stated that for the last two months he has been experiencing worsening shortness of breath, he stated that it got worse 24 hours before admission, he stated that it was present at rest, worsens with exertion, he said he has a mild dry cough, denies any chest pain, chills, fevers, any recent sick contacts, nausea, vomiting, abdominal pain, dizziness, lightheadedness. In the ED patient received Lasix, a chest x-ray revealed moderate pulmonary vascular congestion, BNP was 121, SISI was noted. Echocardiogram was ordered. EKG, rate is 54, sinus, right axis deviation, SC is prolonged, first-degree AV block, LBBB. No ST changes. Compared to previous EKG two years ago is fairly similar. Family History: Cerebrovascular accident (CVA) G8 FATHER G8 SISTER FH: lung cancer G8 MOTHER Allergies: Coded Allergies: Colchicine (Verified Allergy, Unknown, 2/12/25) Diltiazem (Verified Allergy, Unknown, 11/22/24) Gabapentin (Verified Allergy, Unknown, 08/13/23) Latex (Verified Allergy, Unknown, 08/13/23) Metoprolol (Verified Allergy, Unknown, 11/22/24) Home Meds Reported Medications Bumetanide (Bumetanide) 2 Mg Tab, 2 TAB PO DAILY@BREAKFAST for 30 Days, MG 11/23/24 Cholecalciferol (D3 5000) 5,000 Unit Cap, 5000 UNIT PO DAILY@BREAKFAST, CAP 11/23/24 Cyanocobalamin (B12) 1,000 Mcg Cap, 1000 MCG PO DAILY@BREAKFAST, CAP 11/23/24 Ascorbic Acid (VITAMIN C) 500 Mg Cap, 1000 MG PO, CAP 11/23/24 Pantoprazole Sodium Sesquihydr (Protonix) 40 Mg Tab, 40 MG PO DAILY, #30 TAB 11/23/24 Nitroglycerin (NTROSTAT SUBLINGUAL) 0.4 Mg Sl, 0.4 MG SL PRN, TAB *MAY REPEAT EVERY 5 MINUTES X 3 TOTAL IF NO RELIEF, INITIATE ANALGESIC THERAPY. NOTIFY PHYSICIAN *Do not crush. 11/23/24 Ferrous Sulfate (Gnp Iron) 325 Mg Tab, 1 TAB PO BID 11/23/24 Rosuvastatin Calcium (Rosuvastatin Calcium) 40 Mg Tab, 1 TAB PO HS 11/23/24 Losartan Potassium (Losartan Potassium) 25 Mg Tab, 1 TAB PO HS 11/23/24 Potassium Chloride (Potassium Chloride ER) 20 Meq Tab, 2 TAB DAILY@BREAKFAST 11/23/24 Isosorbide Mononitrate (Isosorbide Mononitrate Er) 30 Mg Tab, 1 TAB PO DAILY@BREAKFAST 11/23/24 Docusate Sodium (Docusate Sodium) 100 Mg Cap, 1 CAP PO DAILY@BREAKFAST 11/23/24 Aspirin (Aspirin Low Dose) 81 Mg Tab, 1 TAB PO DAILY@BREAKFAST 11/23/24 Warfarin Sodium (Warfarin Sodium) 5 Mg Tab, 1 MG UD 11/23/24 Metformin Hydrochloride (Metformin Hcl) 500 Mg Tab, 1 TAB PO BID 11/23/24 Sertraline Hcl (Sertraline Hcl) 50 Mg Tab, 1 MG HS 11/23/24 Pramipexole Dihydrochloride (Pramipexole Dihydrochlori) 1.5 Mg Tab, 1.5 MG HS 11/23/24 Pantoprazole Sodium Sesquihydr (Pantoprazole Sodium Dr) 40 Mg Tab, 1 DAILY@BREAKFAST 11/23/24 Empagliflozin (Jardiance) 10 Mg Tab, 1 HS 11/23/24 Amiodarone HCl (Amiodarone HCl) 200 Mg Tab, 200 MG GT, TAB 11/23/24 Current Medications Current Medications Medications (Trade) Dose Ordered Sig/Nichol Route PRN Reason Start Time Stop Time Status Last Admin Furosemide (Lasix Injection) 20 mg DAILY IV 11/23/24 10:00 11/23/24 09:26 DC 11/23/24 08:33 Amiodarone HCl (Cordarone Tablet) 200 mg DAILY PO 11/23/24 10:00 11/23/24 08:32 Hydralazine HCl (Apresoline Tablet) 25 mg Q12HR PO 11/22/24 22:00 11/23/24 08:33 Atorvastatin Calcium (Lipitor) 40 mg HS PO 11/22/24 22:00 11/22/24 20:05 DC Atorvastatin Calcium (Lipitor) 40 mg HS PO 11/22/24 22:00 11/22/24 22:00 Empaglifozin (Jardiance) 10 mg DAILY PO 11/23/24 10:00 11/23/24 08:32 Sertraline HCl (Zoloft) 50 mg DAILY PO 11/23/24 10:00 11/23/24 08:33 Isosorbide Mononitrate (Imdur Er Tablet) 30 mg DAILY PO 11/23/24 10:00 Warfarin Sodium (Coumadin Per Rx Protocol) RX PROTOCOL PER PHARMACY PO 11/22/24 20:00 Diagnostic Test (Pha) (Accu-Chek Comfort Curve T) 1 strip ACHS 11/22/24 22:00 11/23/24 06:26 Insulin Human Regular (InsuLIN R) ACHS SC 11/22/24 22:00 11/22/24 22:00 Dextrose 50 ml UD PRN IV Blood Sugar LESS THAN 60 11/22/24 20:00 Temazepam (Restoril) 15 mg QHSP PRN PO FOR INSOMNIA 11/22/24 20:00 Ondansetron HCl (Zofran) 4 mg Q4HP PRN IV NAUSEA / VOMITING 11/22/24 20:00 Acetaminophen (Tylenol Tablet) 650 mg Q6HP PRN PO PAIN SCALE 1-3 OR TEMP>100.4 11/22/24 20:00 Furosemide (Lasix Injection) 40 mg BIDD IV 11/23/24 18:00 UNV Review of Systems Constitutional: Patient denies fevers, chills, sweats and weight changes. Eyes: Patient denies any visual symptoms. Ears, Nose, and Throat: No difficulties with hearing. No symptoms of rhinitis or sore throat. Cardiovascular: Patient denies chest pains, palpitations, orthopnea and paroxysmal nocturnal dyspnea. Respiratory: Shortness of breath at rest and on exertion, mild dry cough GI: No nausea, vomiting, diarrhea, constipation, abdominal pain, hematochezia or melena. : No urinary hesitancy or dribbling. No nocturia or urinary frequency. No abnormal urethral discharge. Musculoskeletal: No myalgias, arthralgias or edema. Neurologic: No chronic headaches, no seizures. Patient denies numbness, tingling or weakness. Psychiatric: Patient denies problems with mood disturbance. No problems with anxiety. Endocrine: No excessive urination or excessive thirst. Dermatologic: Patient denies any rashes or skin changes. Vital Signs Vital Signs Date Time Temp Pulse Resp B/P (MAP) Pulse Ox O2 Delivery O2 Flow Rate FiO2 11/23/24 08:33 131/71 11/23/24 08:00 50 22 90 Nasal Cannula* 2 28 11/23/24 05:00 97.1 97.1 Physical Exam General: Awake, alert, comfortable appearing, in mild distress due to shortness of breath HEENT: Head is normocephalic and atraumatic. Pupils are equal, round, and reactive to light. Extraocular muscles are intact. No nasal discharge. No facial trauma. Intraoral exam shows moist mucous membranes with no tonsillar enlargement or exudate. Neck: Supple with no cervical lymphadenopathy No meningismus. No goiter. Heart: Bradycardia, without murmur, rub, or gallop. Lungs: Mild bilateral basal crackles Abdomen: No external sign of injury. Bowel sounds are present. Abdomen is soft, nontender. No rebound, no guarding, no rigidity. There are no palpable masses. There is no flank pain on exam. Extremities: Strong peripheral pulses. Plus one pitting edema in both legs Skin: No rash. Neurologic: Cranial nerves II-XII intact without motor, sensory, or cerebellar deficit, no asterixis. Labs/Diagnostic Data Labs Test 11/23/24 08:58 11/23/24 06:25 11/23/24 05:22 11/22/24 18:03 Range/Units POC Glucose 101 70-106 mg/dl Sodium Level 142 136-145 mmol/L Potassium Level 3.7 3.5-5.1 mmol/L Chloride Level 106 98-107 mmol/L Carbon Dioxide Level 29 20-31 mmol/L Anion Gap 7 5-15 Blood Urea Nitrogen 25 H 9-23 mg/dL Creatinine 1.37 H 0.700-1.30 mg/dL Glomerular Filtration Rate Calc 58 >90 mL/min BUN/Creatinine Ratio 18.2 10.0-20.0 Serum Glucose 136 H 74-106 mg/dL Calcium Level 9.7 8.7-10.4 mg/dL Magnesium Level 2.4 1.6-2.6 mg/dL Triglycerides Level 125 < 150 mg/dL Cholesterol Level 112 < 200 mg/dL LDL Cholesterol 48 < 100 mg/dL HDL Cholesterol 45 40-59 mg/dL Troponin I High Sensitivity 20 </=54 ng/L Test 11/22/24 15:06 11/22/24 14:25 Range/Units White Blood Count 5.4 4.4-10.8 10^3/uL Red Blood Count 3.49 L 4.5-5.90 10^6/uL Hemoglobin 10.6 L 13.5-17.5 g/dL Hematocrit 32.9 L 41.0-53.0 % Mean Corpuscular Volume 94.4 80.0-100.0 fL Mean Corpuscular Hemoglobin 30.4 28.0-32.0 pg Mean Corpuscular Hemoglobin Concent 32.2 32.0-36.0 g/dL Red Cell Distribution Width 17.8 H 11.8-14.3 % Platelet Count 138 L 140-450 10^3/uL Mean Platelet Volume 8.3 6.9-10.8 fL Neutrophils (%) (Auto) 81.1 H 37.0-80.0 % Lymphocytes (%) (Auto) 8.2 L 10.0-50.0 % Monocytes (%) (Auto) 8.4 0.0-12.0 % Eosinophils (%) (Auto) 1.6 0.0-7.0 % Basophils (%) (Auto) 0.7 0.0-2.0 % Neutrophils # (Auto) 4.3 1.6-8.6 10 ^3/uL Lymphocytes # (Auto) 0.4 0.4-5.4 10 ^3/uL Monocytes # (Auto) 0.5 0-1.3 10 ^3/uL Eosinophils # (Auto) 0.1 0-0.8 10 ^3/uL Basophils # (Auto) 0 0-0.2 10 ^3/uL Nucleated Red Blood Cells 0.1 % D-Dimer, Quantitative 0.43 0.0-0.49 mg/L FEU B-Type Natriuretic Peptide 121.78 0-100 pg/mL Urine Color Colorless Yellow Urine Clarity Clear Clear Urine pH 6.5 5.0-9.0 Urine Specific [place] 1.005 1.001-1.035 Urine Protein Negative Negative Urine Ketones Negative Negative Urine Blood Negative Negative /uL Urine Nitrite Negative Negative Urine Bilirubin Negative Negative Urine Urobilinogen Normal Negative mg/dL Urine Leukocyte Esterase Negative Negative /uL Urine RBC <1 0 - 3 /hpf Urine Microscopic WBC < 1 0-3 /HPF Urine Squamous Epithelial Cells Few <5 /hpf Urine Bacteria None seen None Seen /hpf Urine Glucose 2+ H Normal mg/dL Influenza Type A Antigen Negative Negative Influenza Type B Antigen Negative Negative SARS-CoV-2 Antigen (Rapid) Negative NEGATIVE Assessment Acute on chronic systolic/diastolic CHF, NYHA class 4 Ischemic cardiomyopathy Acute hypoxic respiratory failure First-degree AV block CAD Status post CABG Status post PTCA/stent x1 Type 2 diabetes Sleep apnea Thrombocytopenia SISI, likely prerenal Secondary coagulopathy Dyslipidemia Hypertension Plan/Recommendation Continue diuresing Lasix 40 mg IV b.i.d. Maintain fluid restrictions, strict I&Os Maintain potassium >4 and magnesium >2 Telemetry status Continue GDMT: Jardiance Continue warfarin due to history of DVT Continue anti hyperlipidemic Continue amiodarone given high risk of afib due to extensive history of ischemic cardiomyopathy Echocardiogram pending Case was discussed with Dr. Delgadillo Patient encounter was reviewed and discussed with Dr Demario Johnston, Resident Physician. All history, meds, vitals, labs, and imaging were reviewed with him. I agree with his A/P which was formulated with me. Plan discussed with: Patient BHAVIN SANTANA RESIDENT Nov 23, 2024 09:50 ELADIO DELGADILLO DO Nov 23, 2024 21:43
[2024-11-23] MEDS: POTASSIUM CHL 20 Meq TABLET PO ONE (10:48)
[2024-11-23 11:07] LABS: INR 1.84 (0.9-1.15); Partial Thromboplastin Time 32.7 SEC (24.5-34.5); Prothrombin Time 18.4 sec (9.3-11.8)
--- NOTE | 2024-11-23 12:09 | DVHPN2 ---
Reviewed: Care Plan, H&P, Labs, Medications, Previous Orders, Radiology Changes from previous H/P or p: No Changes Objective Vitals Vital Signs Date Time Temp Pulse Resp B/P (MAP) Pulse Ox O2 Delivery O2 Flow Rate FiO2 11/23/24 08:33 131/71 11/23/24 08:21 50 16 90 11/23/24 08:00 Nasal Cannula* 2 28 11/23/24 05:00 97.1 97.1 Intake/Output Intake and Output 11/23/24 07:00 Intake Total 800 ml Output Total 600 ml Balance 200 ml Intake Oral 800 ml Output Urine Total 600 ml Medications Current Medications Medications Dose Ordered Sig/Nichol Route Start Time Stop Time Status Last Admin Dose Admin Amiodarone HCl 200 mg DAILY PO 11/23/24 10:00 11/23/24 08:32 200 MG Hydralazine HCl 25 mg Q12HR PO 11/22/24 22:00 11/23/24 08:33 25 MG Atorvastatin Calcium 40 mg HS PO 11/22/24 22:00 11/22/24 22:00 40 MG Empaglifozin 10 mg DAILY PO 11/23/24 10:00 11/23/24 08:32 10 MG Sertraline HCl 50 mg DAILY PO 11/23/24 10:00 11/23/24 08:33 50 MG Isosorbide Mononitrate 30 mg DAILY PO 11/23/24 10:00 Warfarin Sodium RX PROTOCOL PER PHARMACY PO 11/22/24 20:00 Diagnostic Test (Pha) 1 strip ACHS 11/22/24 22:00 11/23/24 10:47 1 STRIP Insulin Human Regular ACHS SC 11/22/24 22:00 11/22/24 22:00 2 UNITS Dextrose 50 ml UD PRN IV 11/22/24 20:00 Temazepam 15 mg QHSP PRN PO 11/22/24 20:00 Ondansetron HCl 4 mg Q4HP PRN IV 11/22/24 20:00 Acetaminophen 650 mg Q6HP PRN PO 11/22/24 20:00 Furosemide 40 mg BIDD IV 11/23/24 18:00 Laboratory Results Laboratory Tests 11/22/24 15:06 11/23/24 05:22 Chemistry Test 11/22/24 15:06 11/23/24 05:22 Calcium Level 9.8 mg/dL (8.7-10.4) 9.7 mg/dL (8.7-10.4) Magnesium Level 2.4 mg/dL (1.6-2.6) Coagulation Test 11/22/24 15:06 11/22/24 20:03 11/23/24 10:11 D-Dimer, Quantitative 0.43 mg/L FEU (0.0-0.49) Prothrombin Time 19.9 sec (9.3-11.8) H 18.4 sec (9.3-11.8) H Prothrombin Time INR 2.01 (0.9-1.15) H 1.84 (0.9-1.15) H Activated Partial Thromboplast Time 33.4 SEC (24.5-34.5) 32.7 SEC (24.5-34.5) Lipid panel Test 11/23/24 05:22 Cholesterol Level 112 mg/dL (< 200) HDL Cholesterol 45 mg/dL (40-59) Triglycerides Level 125 mg/dL (< 150) Cardiac Markers Test 11/22/24 15:06 B-Type Natriuretic Peptide 121.78 pg/mL (0-100) HgA1c, TSH Test 11/23/24 05:22 Thyroid Stimulating Hormone (TSH) Pending Urinalysis Test 11/22/24 14:25 Urine Color Colorless (Yellow) Urine Clarity Clear (Clear) Urine pH 6.5 (5.0-9.0) Urine Specific [place] 1.005 (1.001-1.035) Urine Protein Negative (Negative) Urine Ketones Negative (Negative) Urine Blood Negative /uL (Negative) Urine Nitrite Negative (Negative) Urine Bilirubin Negative (Negative) Urine Urobilinogen Normal mg/dL (Negative) Urine Leukocyte Esterase Negative /uL (Negative) Urine RBC <1 /hpf (0 - 3) Urine Microscopic WBC < 1 /HPF (0-3) Urine Squamous Epithelial Cells Few /hpf (<5) Urine Bacteria None seen /hpf (None Seen) Urine Glucose 2+ mg/dL (Normal) H Labs and/or images reviewed: Labs reviewed by me, Image(s) reviewed by me Assessment/Plan Assessment/Plan Acute hypoxic respiratory failure: Oxygen by nasal cannula Acute CHF exacerbation: Kendra Herr consult for crm architect Dr. Nazario Uncontrolled diabetes: Insulin sliding scale Hypercholesterolemia: Lipitor Depression: Zoloft History of heart valve repair on Coumadin History of VT status post stents and CABG History of coronary artery disease DVT ruled out Chest x-ray negative Flu test negative COVID negative D-dimer normal Time spent 65 minutes Patient is full code Advanced care planning time 20 minutes Condition guarded PCP Dr Wright Plan discussed with: Patient Date of Service: Nov 23, 2024 Billing Provider: MAGED TARIQ MD Common Visit Codes: [id number] CARE 30-74 MIN MAGED TARIQ MD Nov 23, 2024 12:09
--- NOTE | 2024-11-23 12:12 | DVH ---
EXAM: XY CHEST XRAY 1 VIEW Indication: SOB Technique: Single frontal view of the chest was obtained Comparison: None FINDINGS: Lines and Tubes: None Lungs: No focal consolidation. Mild pulmonary vascular congestion. Pleura: No effusion. No pneumothorax. Cardiomediastinal contours: Cardiomegaly. Bones: No acute osseous abnormality. IMPRESSION: Cardiomegaly with mild pulmonary vascular congestion.
[2024-11-23] MEDS: WARFARIN SODIUM 5 MG TAB PO ONE (16:09)
--- NOTE | 2024-11-23 21:27 | DVHSR ---
APPROVED REPORT EXAM: LIMITED Two-dimensional and M-mode echocardiogram with Doppler and color Doppler. Blood Pressure: 109/62 mmHg INDICATION ef RISK FACTORS Obesity: Height: 6'1, Weight: 363 DIMENSIONS LVDd5.9 (3.8-5.7cm)LA (2D)3.6 (1.9-4.0cm)Aortic Root3.3 (2.0-3.7cm) LVDs4.1 (2.5-4.0cm)LA (MM) (1.9-4.0cm)Aortic Cusp Exc (1.5-2.0cm) EF (%) 55.0 (55-70%)Rt. Atrium4.2 (1.9-4.0cm)Asc. Aorta cm IVSd1.2 (0.7-1.1cm)RV (D) (1.8-2.4cm) PWd1.0 (0.7-1.1cm) Mitral Valve MitralMitral Stenosis E wave1.09m/sMV Mean GR.2mmHg A wave0.68m/sMV Peak GR.120mmHg E/A ratio1.62D MVAcm2 DECEL [id number] 1/2 [place] Aortic Valve Aortic ValveAortic Stenosis V10.97m/Rosey Mean GR.16mmHg V22.49m/Rosey Peak GR.25mmHg LVOT Diameter2.3 (1.8-2.4cm)Doppler AVA1.62cm2 Pulmonic Valve V21.37m/s Other Information Quality : Technically LimitedRhythm : Technically limited study due to body habitus.patient position. Conclusion Mildly dilated LV size with normal systolic function. LVEF 55-60% with normal wall motion. Normal genna stolic function. Normal RV size and systolic function. Trileaflet aortic valve with sclerosis. Mild . No AI. Mild MAC. Trace MR. Dilated IVC with normal collapse. No pericardial effusion. TDS. Sinus bradycardia.
[2024-11-24] VITALS (12 sets, daily range): BP systolic 100–124; BP diastolic 42–66; PULSE 47–62; RESP 16–18; TEMP 97.5–98.2; O2SAT 90–100
[2024-11-24 07:35] LABS: Basophils # (auto) 0 10 ^3/uL (0-0.2); Basophils % (auto) 0.6 % (0.0-2.0); Eosinophils # (auto) 0.3 10 ^3/uL (0-0.8); Eosinophils % (auto) 3.4 % (0.0-7.0); Hematocrit 33.4 % (41.0-53.0); Hemoglobin 11.2 g/dL (13.5-17.5); Lymphocytes # (auto) 0.5 10 ^3/uL (0.4-5.4); Lymphocytes % (auto) 6.1 % (10.0-50.0); Mean Corpuscular Hemoglobin 31.4 pg (28.0-32.0); Mean Corpuscular Hgb Conc. 33.4 g/dL (32.0-36.0); Monocytes # (auto) 0.7 10 ^3/uL (0-1.3); Monocytes % (auto) 9.8 % (0.0-12.0); Neutrophils % (auto) 80.1 % (37.0-80.0); Nucleated Red Blood Cells % 0.6 %; Platelet Count (auto) 149 10^3/uL (140-450); Red Blood Cells 3.56 10^6/uL (4.5-5.90); White Blood Cell 7.5 10^3/uL (4.4-10.8)
[2024-11-24 07:44] LABS: INR 1.78 (0.9-1.15); Prothrombin Time 17.8 sec (9.3-11.8)
--- NOTE | 2024-11-24 08:44 | DVHPN2 ---
Reviewed: Care Plan, H&P, Labs, Medications, Previous Orders, Radiology Changes from previous H/P or p: No Changes Objective Vitals Vital Signs Date Time Temp Pulse Resp B/P (MAP) Pulse Ox O2 Delivery O2 Flow Rate FiO2 11/24/24 08:20 94 Nasal Cannula 4.0 11/24/24 05:28 109/42 11/24/24 05:00 98.2 50 17 98.2 11/24/24 04:18 30 Intake/Output Intake and Output 11/24/24 07:00 Intake Total 1650 ml Output Total 1100 ml Balance 550 ml Intake Oral 1650 ml Output Urine Total 1100 ml # Voids 4 Medications Current Medications Medications Dose Ordered Sig/Nichol Route Start Time Stop Time Status Last Admin Dose Admin Amiodarone HCl 200 mg DAILY PO 11/23/24 10:00 11/23/24 08:32 200 MG Hydralazine HCl 25 mg Q12HR PO 11/22/24 22:00 11/23/24 21:27 25 MG Atorvastatin Calcium 40 mg HS PO 11/22/24 22:00 11/23/24 21:28 40 MG Empaglifozin 10 mg DAILY PO 11/23/24 10:00 11/23/24 08:32 10 MG Sertraline HCl 50 mg DAILY PO 11/23/24 10:00 11/23/24 08:33 50 MG Isosorbide Mononitrate 30 mg DAILY PO 11/23/24 10:00 Warfarin Sodium RX PROTOCOL PER PHARMACY PO 11/22/24 20:00 Diagnostic Test (Pha) 1 strip ACHS 11/22/24 22:00 11/24/24 05:29 1 STRIP Insulin Human Regular ACHS SC 11/22/24 22:00 11/23/24 21:40 2 UNITS Dextrose 50 ml UD PRN IV 11/22/24 20:00 Temazepam 15 mg QHSP PRN PO 11/22/24 20:00 Ondansetron HCl 4 mg Q4HP PRN IV 11/22/24 20:00 Acetaminophen 650 mg Q6HP PRN PO 11/22/24 20:00 Furosemide 40 mg BIDD IV 11/23/24 18:00 11/23/24 16:08 40 MG Laboratory Results Laboratory Tests 11/23/24 05:22 11/24/24 07:09 Coagulation Test 11/23/24 10:11 11/24/24 07:09 Prothrombin Time 18.4 sec (9.3-11.8) H 17.8 sec (9.3-11.8) H Prothrombin Time INR 1.84 (0.9-1.15) H 1.78 (0.9-1.15) H Activated Partial Thromboplast Time 32.7 SEC (24.5-34.5) Urinalysis Test 11/22/24 14:25 Urine Color Colorless (Yellow) Urine Clarity Clear (Clear) Urine pH 6.5 (5.0-9.0) Urine Specific [place] 1.005 (1.001-1.035) Urine Protein Negative (Negative) Urine Ketones Negative (Negative) Urine Blood Negative /uL (Negative) Urine Nitrite Negative (Negative) Urine Bilirubin Negative (Negative) Urine Urobilinogen Normal mg/dL (Negative) Urine Leukocyte Esterase Negative /uL (Negative) Urine RBC <1 /hpf (0 - 3) Urine Microscopic WBC < 1 /HPF (0-3) Urine Squamous Epithelial Cells Few /hpf (<5) Urine Bacteria None seen /hpf (None Seen) Urine Glucose 2+ mg/dL (Normal) H Labs and/or images reviewed: Labs reviewed by me, Image(s) reviewed by me Assessment/Plan Assessment/Plan Acute hypoxic respiratory failure: Oxygen by nasal cannula Acute on chronic systolic CHF exacerbation [place] heart Association class 4: Kendra Herr consult for lead accountant Dr. Nazario appreciated, ejection fraction 55 % Ischemic cardiomyopathy: Amiodarone continued as he is high risk for AFib Uncontrolled diabetes: Insulin sliding scale Hypercholesterolemia: Lipitor Depression: Zoloft Sleep apnea Thrombocytopenia History of heart valve repair in 2011 in [place] on Coumadin History of [place] status post CABG in 2009 in [place] History of coronary artery disease DVT ruled out Chest x-ray negative Flu test negative COVID negative D-dimer normal Time spent 55 minutes Patient is full code Advanced care planning time 20 minutes Condition guarded PCP Dr Wright Plan discussed with: Patient My Orders Orders - MAGED TARIQ MD Procedure Category Date Status Time * Cardiology Consult CONS 11/23/24 Transmitted 11:57 Bipap/Cpap For Sleep RT 11/23/24 Logged Apnea 13:19 Date of Service: Nov 24, 2024 Billing Provider: MAGED TARIQ MD Common Visit Codes: [id number] INP/OBS CARE(HIGH) MAGED TARIQ MD Nov 24, 2024 08:44
[2024-11-24 11:07] LABS: Albumin 4.3 g/dL (3.2-4.8); Alkaline Phosphatase 61 U/L (46-116); Anion Gap 10 (5-15); Aspartate Aminotransferase 30 U/L (13-40); BUN/Creatinine Ratio 24.1 (10.0-20.0); Calcium 9.6 mg/dL (8.7-10.4); Carbon Dioxide 26 mmol/L (20-31); Glucose 106 mg/dL (74-106); Magnesium 2.5 mg/dL (1.6-2.6); Potassium 4.2 mmol/L (3.5-5.1); Sodium 143 mmol/L (136-145)
[2024-11-24 11:08] LABS: Total Protein 6.5 g/dL (5.7-8.2)
[2024-11-24 11:09] LABS: Alanine Aminotransferase 50 U/L (7-40); Blood Urea Nitrogen 28 mg/dL (9-23); Chloride 107 mmol/L (98-107)
[2024-11-24] MEDS: FUROSEMIDE 40 MG/4 ML VIAL IV ONE (11:59)
[2024-11-24 13:25] LABS: Amphetamine Screen, Urine Neg (NEGATIVE); Barbiturate Scree,Urine Neg (NEGATIVE); Benzodiazephine Screen, Urine Neg (NEGATIVE); Cannabinoid Screen, Urine Neg (NEGATIVE); Cocaine Screen, Urine Neg (NEGATIVE); Opiate Scree,Urine Neg (NEGATIVE); Phencyclidine Screen, Urine Neg (NEGATIVE)
[2024-11-24] MEDS: WARFARIN SODIUM 5 MG TAB PO ONE (17:58)
--- NOTE | 2024-11-24 18:08 | DVHPN2 ---
Progress Note Date Seen: Nov 24, 2024 Resident Creating Document: BHAVIN SANTANA RESIDENT Medical Necessity Reason Pt with a Central, PICC or Fol: No Subjective Review of Systems Patient states feeling better, he currently remains on nasal cannula at 3 L, heart rate is still low in the 50s, sometimes reaching low 40s, patient denies any dizziness or lightheadedness. We will hold amiodarone, blood pressure medications, prioritize diuresis. Recommended physical therapy. Objective vital signs Vital Sign Date Time Temp Pulse Resp B/P (MAP) Pulse Ox O2 Delivery O2 Flow Rate FiO2 11/24/24 17:36 120/65 11/24/24 17:00 97.5 47 16 97 97.5 11/24/24 08:20 Nasal Cannula 4.0 11/24/24 08:00 28 Total Intake and Output 11/23/24 11/23/24 11/24/24 15:00 23:00 07:00 Intake Total 650 ml 1000 ml Output Total 1100 ml Balance 650 ml -100 ml medications Current Medications Medications Dose Ordered Sig/Nichol Route Start Time Stop Time Status Last Admin Dose Admin Hydralazine HCl 25 mg Q12HR PO 11/22/24 22:00 11/23/24 21:27 25 MG Atorvastatin Calcium 40 mg HS PO 11/22/24 22:00 11/23/24 21:28 40 MG Empaglifozin 10 mg DAILY PO 11/23/24 10:00 11/24/24 09:51 10 MG Sertraline HCl 50 mg DAILY PO 11/23/24 10:00 11/24/24 09:51 50 MG Isosorbide Mononitrate 30 mg DAILY PO 11/23/24 10:00 Warfarin Sodium RX PROTOCOL PER PHARMACY PO 11/22/24 20:00 Diagnostic Test (Pha) 1 strip ACHS 11/22/24 22:00 11/24/24 16:55 1 STRIP Insulin Human Regular ACHS SC 11/22/24 22:00 11/23/24 21:40 2 UNITS Dextrose 50 ml UD PRN IV 11/22/24 20:00 Temazepam 15 mg QHSP PRN PO 11/22/24 20:00 Ondansetron HCl 4 mg Q4HP PRN IV 11/22/24 20:00 Acetaminophen 650 mg Q6HP PRN PO 11/22/24 20:00 Furosemide 40 mg BIDD IV 11/23/24 18:00 11/24/24 17:36 40 MG Examination General: Awake, alert, comfortable appearing, in no acute distress. HEENT: Head is normocephalic and atraumatic. Pupils are equal, round, and reactive to light. Extraocular muscles are intact. No nasal discharge. No facial trauma. Intraoral exam shows moist mucous membranes with no tonsillar enlargement or exudate. Neck: Supple with no cervical lymphadenopathy No meningismus. No goiter. Heart: Regular rate without murmur, rub, or gallop. Lungs: Mild bilateral crackles Abdomen: No external sign of injury. Bowel sounds are present. Abdomen is soft, nontender. No rebound, no guarding, no rigidity. There are no palpable masses. There is no flank pain on exam. Extremities: Strong peripheral pulses. There is no clubbing, no cyanosis, and no edema. Skin: No rash. Neurologic: Cranial nerves II-XII intact without motor, sensory, or cerebellar deficit, no asterixis. laboratory and microbiology Laboratory Tests 11/24/24 07:09 Test 11/24/24 07:09 Range/Units Serum Glucose 106 74-106 mg/dL Labs and/or images reviewed: Labs reviewed by me, Image(s) reviewed by me Problem List/Assessment/Plan Problem List/Assessment/Plan Acute on chronic diastolic CHF, NYHA class 4 Ischemic cardiomyopathy Acute hypoxic respiratory failure First-degree AV block CAD Status post CABG Status post PTCA/stent x1 Type 2 diabetes Sleep apnea Thrombocytopenia SISI, likely prerenal Secondary coagulopathy Dyslipidemia Hypertension Plan/Recommendation Continue diuresing Lasix 40 mg IV b.i.d. Maintain fluid restrictions, strict I&Os Maintain potassium >4 and magnesium >2 Telemetry status Continue GDMT: Jardiance Continue warfarin due to history of DVT Continue anti hyperlipidemic Discontinue amiodarone given bradycardia Hold isosorbide and hydralazine Echocardiogram shows an ejection fraction of 55% Case was discussed with Dr. Brown pt seen with CV resident, agree with plan formulated together Plan discussed with: Patient, Spouse, Other My Orders My Orders Orders - BHAVIN SANTANA Procedure Category Date Status Time Pt Request For Service PT 11/24/24 Logged 11:23 BHAVIN SANTANA Nov 24, 2024 18:08 JOSUE BROWN MD Nov 25, 2024 12:02
[2024-11-25] VITALS (10 sets, daily range): BP systolic 107–118; BP diastolic 63–65; PULSE 49–53; RESP 18–97; TEMP 97.4–98.1; O2SAT 91–99
[2024-11-25 06:46] LABS: Basophils # (auto) 0 10 ^3/uL (0-0.2); Basophils % (auto) 0.7 % (0.0-2.0); Eosinophils # (auto) 0.1 10 ^3/uL (0-0.8); Eosinophils % (auto) 2.2 % (0.0-7.0); Hematocrit 34.1 % (41.0-53.0); Hemoglobin 11.3 g/dL (13.5-17.5); Lymphocytes # (auto) 0.5 10 ^3/uL (0.4-5.4); Lymphocytes % (auto) 9.2 % (10.0-50.0); Mean Corpuscular Hemoglobin 31.1 pg (28.0-32.0); Mean Corpuscular Hgb Conc. 33.1 g/dL (32.0-36.0); Mean Corpuscular Volume 93.8 fL (80.0-100.0); Monocytes # (auto) 0.6 10 ^3/uL (0-1.3); Monocytes % (auto) 10.1 % (0.0-12.0); Neutrophils # (auto) 4.5 10 ^3/uL (1.6-8.6); Neutrophils % (auto) 77.8 % (37.0-80.0); Nucleated Red Blood Cells % 0.1 %; Platelet Count (auto) 141 10^3/uL (140-450); Red Blood Cells 3.64 10^6/uL (4.5-5.90); Red Cell Distribution Width 17.7 % (11.8-14.3); White Blood Cell 5.8 10^3/uL (4.4-10.8)
[2024-11-25 07:25] LABS: INR 1.57 (0.9-1.15); Partial Thromboplastin Time 31.6 SEC (24.5-34.5); Prothrombin Time 15.9 sec (9.3-11.8)
--- NOTE | 2024-11-25 08:34 | DVHPN2 ---
Reviewed: Care Plan, H&P, Labs, Medications, Previous Orders, Radiology Changes from previous H/P or p: No Changes Objective Vitals Vital Signs Date Time Temp Pulse Resp B/P (MAP) Pulse Ox O2 Delivery O2 Flow Rate FiO2 11/25/24 06:24 96 Nasal Cannula* 2 28 11/25/24 06:06 116/63 11/25/24 05:00 97.4 50 18 97.4 Intake/Output Intake and Output 11/25/24 07:00 Intake Total 1206 ml Output Total 2065 ml Balance -859 ml Intake Oral 1206 ml Output Urine Total 2065 ml # Bowel Movements 1 Medications Current Medications Medications Dose Ordered Sig/Nichol Route Start Time Stop Time Status Last Admin Dose Admin Atorvastatin Calcium 40 mg HS PO 11/22/24 22:00 11/24/24 21:39 40 MG Empaglifozin 10 mg DAILY PO 11/23/24 10:00 11/24/24 09:51 10 MG Sertraline HCl 50 mg DAILY PO 11/23/24 10:00 11/24/24 09:51 50 MG Warfarin Sodium RX PROTOCOL PER PHARMACY PO 11/22/24 20:00 Diagnostic Test (Pha) 1 strip ACHS 11/22/24 22:00 11/25/24 08:17 1 STRIP Insulin Human Regular ACHS SC 11/22/24 22:00 11/24/24 21:40 3 UNITS Dextrose 50 ml UD PRN IV 11/22/24 20:00 Temazepam 15 mg QHSP PRN PO 11/22/24 20:00 Ondansetron HCl 4 mg Q4HP PRN IV 11/22/24 20:00 Acetaminophen 650 mg Q6HP PRN PO 11/22/24 20:00 Furosemide 40 mg BIDD IV 11/23/24 18:00 11/25/24 06:06 40 MG Laboratory Results Laboratory Tests 11/24/24 07:09 11/25/24 06:01 Coagulation Test 11/25/24 06:01 Prothrombin Time 15.9 sec (9.3-11.8) H Prothrombin Time INR 1.57 (0.9-1.15) H Activated Partial Thromboplast Time 31.6 SEC (24.5-34.5) Urinalysis Test 11/22/24 14:25 Urine Color Colorless (Yellow) Urine Clarity Clear (Clear) Urine pH 6.5 (5.0-9.0) Urine Specific [place] 1.005 (1.001-1.035) Urine Protein Negative (Negative) Urine Ketones Negative (Negative) Urine Blood Negative /uL (Negative) Urine Nitrite Negative (Negative) Urine Bilirubin Negative (Negative) Urine Urobilinogen Normal mg/dL (Negative) Urine Leukocyte Esterase Negative /uL (Negative) Urine RBC <1 /hpf (0 - 3) Urine Microscopic WBC < 1 /HPF (0-3) Urine Squamous Epithelial Cells Few /hpf (<5) Urine Bacteria None seen /hpf (None Seen) Urine Glucose 2+ mg/dL (Normal) H Labs and/or images reviewed: Labs reviewed by me, Image(s) reviewed by me Assessment/Plan Assessment/Plan Acute hypoxic respiratory failure: Oxygen by nasal cannula Acute on chronic diastolic CHF exacerbation [place] heart Association class 4: Kendra Herr consult by press worker helper Dr. Nicholson appreciated, ejection fraction 55 % Ischemic cardiomyopathy: Amiodarone continued as he is high risk for AFib First-degree heart block Uncontrolled diabetes: Insulin sliding scale Hypercholesterolemia: Lipitor Depression: Zoloft Sleep apnea Thrombocytopenia History of heart valve repair in 2011 in [place] on Coumadin History of CT status post CABG in 2009 in [place] History of coronary artery disease DVT ruled out Chest x-ray negative Flu test negative COVID negative D-dimer normal Time spent 55 minutes Patient is full code Advanced care planning time 20 minutes Plan discussed with: Patient Date of Service: Nov 25, 2024 Billing Provider: MAGED TARIQ MD Common Visit Codes: [id number] INP/OBS CARE(HIGH) MAGED TARIQ MD Nov 25, 2024 08:34
--- NOTE | 2024-11-25 14:31 | DVHPN2 ---
Progress Note Date Seen: Nov 25, 2024 Medical Necessity Reason Pt with a Central, PICC or Fol: No Subjective Patient reports: Feels better Objective vital signs Vital Sign Date Time Temp Pulse Resp B/P (MAP) Pulse Ox O2 Delivery O2 Flow Rate FiO2 11/25/24 08:41 98.1 50 21 114/65 (81) 95 98.1 11/25/24 08:00 Nasal Cannula* 2 28 Total Intake and Output 11/24/24 11/24/24 11/25/24 15:00 23:00 07:00 Intake Total 986 ml 220 ml Output Total 1615 ml 450 ml Balance -629 ml -230 ml medications Current Medications Medications Dose Ordered Sig/Nichlo Route Start Time Stop Time Status Last Admin Dose Admin Atorvastatin Calcium 40 mg HS PO 11/22/24 22:00 11/24/24 21:39 40 MG Empaglifozin 10 mg DAILY PO 11/23/24 10:00 11/25/24 10:21 10 MG Sertraline HCl 50 mg DAILY PO 11/23/24 10:00 11/25/24 10:21 50 MG Warfarin Sodium RX PROTOCOL PER PHARMACY PO 11/22/24 20:00 Diagnostic Test (Pha) 1 strip ACHS 11/22/24 22:00 11/25/24 11:25 1 STRIP Insulin Human Regular ACHS SC 11/22/24 22:00 11/24/24 21:40 3 UNITS Dextrose 50 ml UD PRN IV 11/22/24 20:00 Temazepam 15 mg QHSP PRN PO 11/22/24 20:00 Ondansetron HCl 4 mg Q4HP PRN IV 11/22/24 20:00 Acetaminophen 650 mg Q6HP PRN PO 11/22/24 20:00 Furosemide 40 mg BIDD IV 11/23/24 18:00 11/25/24 06:06 40 MG Pantoprazole Sodium 40 mg BID IV 11/25/24 22:00 Examination: GENERAL:Abnormal, HEENT:Abnormal, LUNGS:Abnormal, CVS:Abnormal, ABDOMEN:Abnormal laboratory and microbiology Laboratory Tests 11/25/24 06:01 11/24/24 07:09 Test 11/24/24 07:09 Range/Units Serum Glucose 106 74-106 mg/dL Problem List/Assessment/Plan Problem List/Assessment/Plan Acute on chronic diastolic CHF, NYHA class 4 Ischemic cardiomyopathy Acute hypoxic respiratory failure First-degree AV block CAD Status post CABG Status post PTCA/stent x1 Type 2 diabetes Sleep apnea Thrombocytopenia SISI, likely prerenal Secondary coagulopathy Dyslipidemia Hypertension Plan/Recommendation Continue diuresing Lasix 40 mg IV b.i.d. Maintain fluid restrictions, strict I&Os Maintain potassium >4 and magnesium >2 Telemetry status Continue GDMT: Jardiance Continue warfarin due to history of DVT Continue anti hyperlipidemic Discontinue amiodarone given bradycardia Hold isosorbide and hydralazine Echocardiogram shows an ejection fraction of 55% dc amio given 1st deg avb SR and lbbb, family wanted to discuss this. told pt to get outpt holter with his cards after dc and see if any more afib. if none then keep off. if he has afib then will need ppm given tachy althea. i seen no afib on his ecgshere either. dc home when stable signing off Plan discussed with: Patient Date of Service: Nov 25, 2024 Billing Provider: JOSUE BRONW MD Common Visit Codes: NOT BILLABLE JOSUE BROWN MD Nov 25, 2024 14:31
[2024-11-25] MEDS: WARFARIN SODIUM 2.5 MG TAB PO ONE (17:42)
[2024-11-25] MEDS: PANTOPRAZOLE 40 MG/10 ML VIAL INJ IV SCH (21:36)
[2024-11-26] VITALS (8 sets, daily range): BP systolic 97–119; BP diastolic 43–64; PULSE 47–55; RESP 16–94; TEMP 97.8–98.5; O2SAT 91–98
[2024-11-26 06:42] LABS: Basophils # (auto) 0 10 ^3/uL (0-0.2); Basophils % (auto) 0.7 % (0.0-2.0); Eosinophils # (auto) 0.1 10 ^3/uL (0-0.8); Eosinophils % (auto) 1.8 % (0.0-7.0); Hematocrit 34.2 % (41.0-53.0); Hemoglobin 11.2 g/dL (13.5-17.5); Lymphocytes # (auto) 0.5 10 ^3/uL (0.4-5.4); Lymphocytes % (auto) 7.3 % (10.0-50.0); Mean Corpuscular Hemoglobin 30.5 pg (28.0-32.0); Mean Corpuscular Hgb Conc. 32.8 g/dL (32.0-36.0); Mean Corpuscular Volume 92.8 fL (80.0-100.0); Monocytes # (auto) 0.7 10 ^3/uL (0-1.3); Monocytes % (auto) 10.6 % (0.0-12.0); Neutrophils # (auto) 5.2 10 ^3/uL (1.6-8.6); Neutrophils % (auto) 79.6 % (37.0-80.0); Nucleated Red Blood Cells % 0.1 %; Platelet Count (auto) 135 10^3/uL (140-450); Red Blood Cells 3.69 10^6/uL (4.5-5.90); Red Cell Distribution Width 17.2 % (11.8-14.3); White Blood Cell 6.5 10^3/uL (4.4-10.8)
[2024-11-26 06:53] LABS: INR 1.54 (0.9-1.15); Partial Thromboplastin Time 30.6 SEC (24.5-34.5); Prothrombin Time 15.6 sec (9.3-11.8)
[2024-11-26 07:00] LABS: Albumin 4.3 g/dL (3.2-4.8); Alkaline Phosphatase 61 U/L (46-116); Anion Gap 9 (5-15); Aspartate Aminotransferase 35 U/L (13-40); BUN/Creatinine Ratio 23.1 (10.0-20.0); Calcium 9.8 mg/dL (8.7-10.4); Carbon Dioxide 28 mmol/L (20-31); Chloride 104 mmol/L (98-107); Glucose 89 mg/dL (74-106); Potassium 3.5 mmol/L (3.5-5.1); Sodium 141 mmol/L (136-145); Total Protein 6.9 g/dL (5.7-8.2)
[2024-11-26 07:01] LABS: Alanine Aminotransferase 54 U/L (7-40); Blood Urea Nitrogen 27 mg/dL (9-23)
--- NOTE | 2024-11-26 09:39 | DVHPN2 ---
Reviewed: Care Plan, H&P, Labs, Medications, Previous Orders, Radiology Changes from previous H/P or p: No Changes Objective Vitals Vital Signs Date Time Temp Pulse Resp B/P (MAP) Pulse Ox O2 Delivery O2 Flow Rate FiO2 11/26/24 09:02 98.5 48 16 104/43 (63) 96 98.5 11/25/24 19:53 Nasal Cannula* 2 28 Intake/Output Intake and Output 11/26/24 07:00 Intake Total 1903 ml Output Total 1655 ml Balance 248 ml Intake Oral 1903 ml Output Urine Total 1655 ml Medications Current Medications Medications Dose Ordered Sig/Nichol Route Start Time Stop Time Status Last Admin Dose Admin Atorvastatin Calcium 40 mg HS PO 11/22/24 22:00 11/25/24 21:37 40 MG Empaglifozin 10 mg DAILY PO 11/23/24 10:00 11/25/24 10:21 10 MG Sertraline HCl 50 mg DAILY PO 11/23/24 10:00 11/25/24 10:21 50 MG Warfarin Sodium RX PROTOCOL PER PHARMACY PO 11/22/24 20:00 Diagnostic Test (Pha) 1 strip ACHS 11/22/24 22:00 11/26/24 05:41 1 STRIP Insulin Human Regular ACHS SC 11/22/24 22:00 11/25/24 21:35 2 UNITS Dextrose 50 ml UD PRN IV 11/22/24 20:00 Temazepam 15 mg QHSP PRN PO 11/22/24 20:00 Ondansetron HCl 4 mg Q4HP PRN IV 11/22/24 20:00 Acetaminophen 650 mg Q6HP PRN PO 11/22/24 20:00 Furosemide 40 mg BIDD IV 11/23/24 18:00 11/26/24 05:41 40 MG Pantoprazole Sodium 40 mg BID IV 11/25/24 22:00 11/25/24 21:36 40 MG Laboratory Results Laboratory Tests 11/26/24 05:48 Chemistry Test 11/26/24 05:48 Albumin 4.3 g/dL (3.2-4.8) Calcium Level 9.8 mg/dL (8.7-10.4) Total Protein 6.9 g/dL (5.7-8.2) Coagulation Test 11/26/24 05:48 Prothrombin Time 15.6 sec (9.3-11.8) H Prothrombin Time INR 1.54 (0.9-1.15) H Activated Partial Thromboplast Time 30.6 SEC (24.5-34.5) LFT Test 11/26/24 05:48 Alanine Aminotransferase (ALT) 54 U/L (7-40) H Alkaline Phosphatase 61 U/L (46-116) Aspartate Amino Transferase (AST) 35 U/L (13-40) Total Bilirubin 1.0 mg/dL (0.2-1.0) Urinalysis Test 11/22/24 14:25 Urine Color Colorless (Yellow) Urine Clarity Clear (Clear) Urine pH 6.5 (5.0-9.0) Urine Specific [place] 1.005 (1.001-1.035) Urine Protein Negative (Negative) Urine Ketones Negative (Negative) Urine Blood Negative /uL (Negative) Urine Nitrite Negative (Negative) Urine Bilirubin Negative (Negative) Urine Urobilinogen Normal mg/dL (Negative) Urine Leukocyte Esterase Negative /uL (Negative) Urine RBC <1 /hpf (0 - 3) Urine Microscopic WBC < 1 /HPF (0-3) Urine Squamous Epithelial Cells Few /hpf (<5) Urine Bacteria None seen /hpf (None Seen) Urine Glucose 2+ mg/dL (Normal) H Labs and/or images reviewed: Labs reviewed by me, Image(s) reviewed by me Assessment/Plan Assessment/Plan Acute hypoxic respiratory failure: Oxygen by nasal cannula Acute on chronic diastolic CHF exacerbation [place] heart Association class 4: Kendra Herr consult by enrollment management vice president Dr. Nicholson appreciated, ejection fraction 55 % Ischemic cardiomyopathy: Amiodarone continued as he is high risk for AFib First-degree heart block Uncontrolled diabetes: Insulin sliding scale Hypercholesterolemia: Lipitor Depression: Zoloft Sleep apnea Thrombocytopenia History of heart valve repair in 2011 in [place] on Coumadin History of [place] status post CABG in 2009 in [place] History of coronary artery disease DVT ruled out Chest x-ray negative Flu test negative COVID negative D-dimer normal Time spent 45 minutes Patient is full code Plan discussed with: Patient My Orders Orders - MAGED TARIQ MD Procedure Category Date Status Time Pantoprazole PHA 11/25/24 In Process (Protonix) 22:00 Electrocardigram EKG 11/26/24 Logged 07:10 Date of Service: Nov 26, 2024 Billing Provider: MAGED TARIQ MD Common Visit Codes: [id number] INP/OBS CARE(HIGH) MAGED TARIQ MD Nov 26, 2024 09:38
[2024-11-26] MEDS: WARFARIN SODIUM 2.5 MG TAB PO ONE (18:00)
[2024-11-27] VITALS (8 sets, daily range): BP systolic 102–131; BP diastolic 48–77; PULSE 42–75; RESP 16–21; TEMP 97.5–98.5; O2SAT 93–100
[2024-11-27 05:34] LABS: Basophils # (auto) 0 10 ^3/uL (0-0.2); Basophils % (auto) 0.7 % (0.0-2.0); Eosinophils # (auto) 0.1 10 ^3/uL (0-0.8); Eosinophils % (auto) 2.1 % (0.0-7.0); Hematocrit 35.4 % (41.0-53.0); Hemoglobin 11.6 g/dL (13.5-17.5); Lymphocytes # (auto) 0.5 10 ^3/uL (0.4-5.4); Mean Corpuscular Hemoglobin 30.3 pg (28.0-32.0); Mean Corpuscular Hgb Conc. 32.7 g/dL (32.0-36.0); Mean Corpuscular Volume 92.8 fL (80.0-100.0); Monocytes # (auto) 0.8 10 ^3/uL (0-1.3); Monocytes % (auto) 13.2 % (0.0-12.0); Neutrophils # (auto) 4.5 10 ^3/uL (1.6-8.6); Nucleated Red Blood Cells % 0.1 %; Platelet Count (auto) 142 10^3/uL (140-450); Red Blood Cells 3.81 10^6/uL (4.5-5.90); Red Cell Distribution Width 17.1 % (11.8-14.3); White Blood Cell 5.9 10^3/uL (4.4-10.8)
[2024-11-27 05:49] LABS: INR 1.65 (0.9-1.15); Partial Thromboplastin Time 31.6 SEC (24.5-34.5); Prothrombin Time 16.6 sec (9.3-11.8)
--- NOTE | 2024-11-27 09:13 | DVHPN2 ---
Reviewed: Care Plan, H&P, Labs, Medications, Previous Orders, Radiology Changes from previous H/P or p: No Changes Objective Vitals Vital Signs Date Time Temp Pulse Resp B/P (MAP) Pulse Ox O2 Delivery O2 Flow Rate FiO2 11/27/24 06:05 115/57 11/27/24 05:00 97.5 48 18 94 97.5 11/26/24 20:00 Nasal Cannula* 1 24 Intake/Output Intake and Output 11/27/24 07:00 Intake Total 1750 ml Output Total 1850 ml Balance -100 ml Intake Oral 1750 ml Output Urine Total 1850 ml # Bowel Movements 1 Medications Current Medications Medications Dose Ordered Sig/Nichol Route Start Time Stop Time Status Last Admin Dose Admin Atorvastatin Calcium 40 mg HS PO 11/22/24 22:00 11/26/24 22:23 40 MG Empaglifozin 10 mg DAILY PO 11/23/24 10:00 11/26/24 09:35 10 MG Sertraline HCl 50 mg DAILY PO 11/23/24 10:00 11/26/24 09:35 50 MG Warfarin Sodium RX PROTOCOL PER PHARMACY PO 11/22/24 20:00 Diagnostic Test (Pha) 1 strip ACHS 11/22/24 22:00 11/27/24 06:05 1 STRIP Insulin Human Regular ACHS SC 11/22/24 22:00 11/26/24 22:29 3 UNITS Dextrose 50 ml UD PRN IV 11/22/24 20:00 Temazepam 15 mg QHSP PRN PO 11/22/24 20:00 Ondansetron HCl 4 mg Q4HP PRN IV 11/22/24 20:00 Acetaminophen 650 mg Q6HP PRN PO 11/22/24 20:00 Furosemide 40 mg BIDD IV 11/23/24 18:00 11/27/24 06:05 40 MG Pantoprazole Sodium 40 mg BID IV 11/25/24 22:00 11/26/24 22:23 40 MG Laboratory Results Laboratory Tests 11/26/24 05:48 11/27/24 04:55 Coagulation Test 11/27/24 04:55 Prothrombin Time 16.6 sec (9.3-11.8) H Prothrombin Time INR 1.65 (0.9-1.15) H Activated Partial Thromboplast Time 31.6 SEC (24.5-34.5) Urinalysis Test 11/22/24 14:25 Urine Color Colorless (Yellow) Urine Clarity Clear (Clear) Urine pH 6.5 (5.0-9.0) Urine Specific [place] 1.005 (1.001-1.035) Urine Protein Negative (Negative) Urine Ketones Negative (Negative) Urine Blood Negative /uL (Negative) Urine Nitrite Negative (Negative) Urine Bilirubin Negative (Negative) Urine Urobilinogen Normal mg/dL (Negative) Urine Leukocyte Esterase Negative /uL (Negative) Urine RBC <1 /hpf (0 - 3) Urine Microscopic WBC < 1 /HPF (0-3) Urine Squamous Epithelial Cells Few /hpf (<5) Urine Bacteria None seen /hpf (None Seen) Urine Glucose 2+ mg/dL (Normal) H Labs and/or images reviewed: Labs reviewed by me, Image(s) reviewed by me Assessment/Plan Assessment/Plan Acute hypoxic respiratory failure: Oxygen by nasal cannula Acute on chronic diastolic CHF exacerbation [place] heart Association class 4: Lasix Coreg , Jardiance consult by national service officer Dr. Nicholson appreciated, ejection fraction 55 % Ischemic cardiomyopathy: Amiodarone continued as he is high risk for AFib First-degree heart block Uncontrolled diabetes: Insulin sliding scale Hypercholesterolemia: Lipitor Depression: Zoloft Sleep apnea Thrombocytopenia History of heart valve repair in 2011 in [place] on Coumadin History of [place] status post CABG in 2009 in [place] History of coronary artery disease DVT ruled out Chest x-ray negative Flu test negative COVID negative D-dimer normal Time spent 45 minutes Patient is full code Bradycardia in the range of 50, new development, consult for Dr. Nicholson Plan discussed with: Patient, Spouse My Orders Orders - MAGED TARIQ MD Procedure Category Date Status Time * Cardiology Consult CONS 11/27/24 Transmitted 09:10 Date of Service: Nov 27, 2024 Billing Provider: MAGED TARIQ MD Common Visit Codes: [id number] INP/OBS CARE(HIGH) MAGED TARIQ MD Nov 27, 2024 09:13
--- NOTE | 2024-11-27 12:48 | ECG ---
[facility] Test Date: 2024-11-24 Test Time: 10:13:36 Pat Name: YAMILEX VELÁZQUEZ Department: Room: 0212T Gender: M Freight [employer]cker: DENISE : 1960 Requested By: MELINA PENDLETON Order Number: [id number] Reading MD: Measurements Intervals [place] Rate: 49 P: 149 CO: 284 QRS: 82 QRSD: 202 T: 118 QT: 553 QTc: 500 Interpretive Statements Sinus or ectopic atrial bradycardia Prolonged CO interval LVH with secondary repolarization abnormality Borderline prolonged QT interval Please click the below link to view image of tracing.
[2024-11-27] MEDS: WARFARIN SODIUM 2.5 MG TAB PO ONE (17:00)
[2024-11-28] VITALS (7 sets, daily range): BP systolic 109–112; BP diastolic 53–62; PULSE 48–92; RESP 18; TEMP 36.6; O2SAT 94–97
[2024-11-28 06:11] LABS: Basophils # (auto) 0 10 ^3/uL (0-0.2); Basophils % (auto) 0.7 % (0.0-2.0); Eosinophils # (auto) 0.2 10 ^3/uL (0-0.8); Eosinophils % (auto) 2.6 % (0.0-7.0); Hematocrit 36.5 % (41.0-53.0); Hemoglobin 11.8 g/dL (13.5-17.5); Lymphocytes # (auto) 0.5 10 ^3/uL (0.4-5.4); Lymphocytes % (auto) 8.9 % (10.0-50.0); Mean Corpuscular Hemoglobin 29.9 pg (28.0-32.0); Mean Corpuscular Hgb Conc. 32.4 g/dL (32.0-36.0); Mean Corpuscular Volume 92.5 fL (80.0-100.0); Monocytes # (auto) 0.9 10 ^3/uL (0-1.3); Monocytes % (auto) 15.1 % (0.0-12.0); Neutrophils # (auto) 4.5 10 ^3/uL (1.6-8.6); Neutrophils % (auto) 72.7 % (37.0-80.0); Nucleated Red Blood Cells % 0.1 %; Platelet Count (auto) 135 10^3/uL (140-450); Red Blood Cells 3.95 10^6/uL (4.5-5.90); White Blood Cell 6.1 10^3/uL (4.4-10.8)
[2024-11-28 06:26] LABS: INR 1.82 (0.9-1.15); Partial Thromboplastin Time 33.3 SEC (24.5-34.5); Prothrombin Time 18.2 sec (9.3-11.8)
--- NOTE | 2024-11-28 08:16 | DVHPN2 ---
Reviewed: Care Plan, H&P, Labs, Medications, Previous Orders, Radiology Changes from previous H/P or p: No Changes Objective Vitals Vital Signs Date Time Temp Pulse Resp B/P (MAP) Pulse Ox O2 Delivery O2 Flow Rate FiO2 11/28/24 06:09 111/58 11/28/24 05:05 98.7 92 18 97 98.7 11/27/24 20:00 Nasal Cannula* 1 24 Intake/Output Intake and Output 11/28/24 07:00 Intake Total 1880 ml Output Total 2700 ml Balance -820 ml Intake Oral 1880 ml Output Urine Total 2700 ml # Bowel Movements 2 Medications Current Medications Medications Dose Ordered Sig/Nichol Route Start Time Stop Time Status Last Admin Dose Admin Atorvastatin Calcium 40 mg HS PO 11/22/24 22:00 11/27/24 21:06 40 MG Empaglifozin 10 mg DAILY PO 11/23/24 10:00 11/27/24 11:01 10 MG Sertraline HCl 50 mg DAILY PO 11/23/24 10:00 11/27/24 11:01 50 MG Warfarin Sodium RX PROTOCOL PER PHARMACY PO 11/22/24 20:00 Diagnostic Test (Pha) 1 strip ACHS 11/22/24 22:00 11/28/24 06:10 1 STRIP Insulin Human Regular ACHS SC 11/22/24 22:00 11/27/24 21:09 2 UNITS Dextrose 50 ml UD PRN IV 11/22/24 20:00 Temazepam 15 mg QHSP PRN PO 11/22/24 20:00 Ondansetron HCl 4 mg Q4HP PRN IV 11/22/24 20:00 Acetaminophen 650 mg Q6HP PRN PO 11/22/24 20:00 Furosemide 40 mg BIDD IV 11/23/24 18:00 11/28/24 06:09 40 MG Pantoprazole Sodium 40 mg BID IV 11/25/24 22:00 11/27/24 21:06 40 MG Laboratory Results Laboratory Tests 11/26/24 05:48 11/28/24 05:27 Coagulation Test 11/28/24 05:27 Prothrombin Time 18.2 sec (9.3-11.8) H Prothrombin Time INR 1.82 (0.9-1.15) H Activated Partial Thromboplast Time 33.3 SEC (24.5-34.5) Urinalysis Test 11/22/24 14:25 Urine Color Colorless (Yellow) Urine Clarity Clear (Clear) Urine pH 6.5 (5.0-9.0) Urine Specific [place] 1.005 (1.001-1.035) Urine Protein Negative (Negative) Urine Ketones Negative (Negative) Urine Blood Negative /uL (Negative) Urine Nitrite Negative (Negative) Urine Bilirubin Negative (Negative) Urine Urobilinogen Normal mg/dL (Negative) Urine Leukocyte Esterase Negative /uL (Negative) Urine RBC <1 /hpf (0 - 3) Urine Microscopic WBC < 1 /HPF (0-3) Urine Squamous Epithelial Cells Few /hpf (<5) Urine Bacteria None seen /hpf (None Seen) Urine Glucose 2+ mg/dL (Normal) H Labs and/or images reviewed: Labs reviewed by me, Image(s) reviewed by me Assessment/Plan Assessment/Plan Acute hypoxic respiratory failure: Oxygen by nasal cannula Acute on chronic diastolic CHF exacerbation [place] heart Association class 4: Lasix Coreg , Jardiance consult by shoulder puncher Dr. Nicholson appreciated, ejection fraction 55 % Ischemic cardiomyopathy: Amiodarone discontinued because of bradycardia First-degree heart block Uncontrolled diabetes: Insulin sliding scale Hypercholesterolemia: Lipitor Depression: Zoloft Sleep apnea Thrombocytopenia History of heart valve repair in 2011 in [place] on Coumadin History of HI status post CABG in 2009 in [place] History of coronary artery disease DVT ruled out Chest x-ray negative Flu test negative COVID negative D-dimer normal Time spent 45 minutes Patient is full code Will get ABG on room air to see if he qualifies for home o2 Plan discussed with: Patient My Orders Orders - MAGED TARIQ MD Procedure Category Date Status Time * Cardiology Consult CONS 11/27/24 Transmitted 09:10 Abg W/ Co-Ox RT 11/28/24 Transmitted 08:07 Date of Service: Nov 28, 2024 Billing Provider: MAGED TARIQ MD Common Visit Codes: 02408-[id number] INP/OBS CARE(HIGH) MAGED TARIQ MD Nov 28, 2024 08:16
--- NOTE | 2024-11-28 08:21 | DVHDS2 ---
Discharge Summary Date of Admission Nov 22, 2024 at 19:50 Date of Discharge: Nov 28, 2024 Admitting Diagnosis Shortness of breath Wounds: None Labs/Diagnostic Data: Laboratory Results Test 11/28/24 05:56 11/28/24 05:27 11/26/24 05:48 11/24/24 12:30 POC Glucose 100 mg/dl (70-106) White Blood Count 6.1 10^3/uL (4.4-10.8) Red Blood Count 3.95 10^6/uL (4.5-5.90) Hemoglobin 11.8 g/dL (13.5-17.5) Hematocrit 36.5 % (41.0-53.0) Mean Corpuscular Volume 92.5 fL (80.0-100.0) Mean Corpuscular Hemoglobin 29.9 pg (28.0-32.0) Mean Corpuscular Hemoglobin Concent 32.4 g/dL (32.0-36.0) Red Cell Distribution Width 17.0 % (11.8-14.3) Platelet Count 135 10^3/uL (140-450) Mean Platelet Volume 8.1 fL (6.9-10.8) Neutrophils (%) (Auto) 72.7 % (37.0-80.0) Lymphocytes (%) (Auto) 8.9 % (10.0-50.0) Monocytes (%) (Auto) 15.1 % (0.0-12.0) Eosinophils (%) (Auto) 2.6 % (0.0-7.0) Basophils (%) (Auto) 0.7 % (0.0-2.0) Neutrophils # (Auto) 4.5 10 ^3/uL (1.6-8.6) Lymphocytes # (Auto) 0.5 10 ^3/uL (0.4-5.4) Monocytes # (Auto) 0.9 10 ^3/uL (0-1.3) Eosinophils # (Auto) 0.2 10 ^3/uL (0-0.8) Basophils # (Auto) 0 10 ^3/uL (0-0.2) Nucleated Red Blood Cells 0.1 % Prothrombin Time 18.2 sec (9.3-11.8) Prothrombin Time INR 1.82 (0.9-1.15) Activated Partial Thromboplast Time 33.3 SEC (24.5-34.5) Creatinine 1.26 mg/dL (0.700-1.30) Glomerular Filtration Rate Calc 64 mL/min (>90) Sodium Level 141 mmol/L (136-145) Potassium Level 3.5 mmol/L (3.5-5.1) Chloride Level 104 mmol/L (98-107) Carbon Dioxide Level 28 mmol/L (20-31) Anion Gap 9 (5-15) Blood Urea Nitrogen 27 mg/dL (9-23) BUN/Creatinine Ratio 23.1 (10.0-20.0) Serum Glucose 89 mg/dL (74-106) Calcium Level 9.8 mg/dL (8.7-10.4) Total Bilirubin 1.0 mg/dL (0.2-1.0) Aspartate Amino Transferase (AST) 35 U/L (13-40) Alanine Aminotransferase (ALT) 54 U/L (7-40) Alkaline Phosphatase 61 U/L (46-116) Total Protein 6.9 g/dL (5.7-8.2) Albumin 4.3 g/dL (3.2-4.8) Urine Opiates Screen Neg (NEGATIVE) Urine Fentanyl Screen Neg (NEGATIVE) Urine Barbiturates Screen Neg (NEGATIVE) Urine Phencyclidine Screen Neg (NEGATIVE) Urine Amphetamines Screen Neg (NEGATIVE) Urine Benzodiazepines Screen Neg (NEGATIVE) Urine Cocaine Screen Neg (NEGATIVE) Urine Cannabinoids Screen Neg (NEGATIVE) Test 11/24/24 07:09 11/23/24 05:22 11/22/24 18:03 11/22/24 15:06 Magnesium Level 2.5 mg/dL (1.6-2.6) Triglycerides Level 125 mg/dL (< 150) Cholesterol Level 112 mg/dL (< 200) LDL Cholesterol 48 mg/dL (< 100) HDL Cholesterol 45 mg/dL (40-59) Thyroid Stimulating Hormone (TSH) 2.38 uIU/mL (0.55-4.78) Troponin I High Sensitivity 20 ng/L (</=54) D-Dimer, Quantitative 0.43 mg/L FEU (0.0-0.49) B-Type Natriuretic Peptide 121.78 pg/mL (0-100) Test 11/22/24 14:25 Urine Color Colorless (Yellow) Urine Clarity Clear (Clear) Urine pH 6.5 (5.0-9.0) Urine Specific [place] 1.005 (1.001-1.035) Urine Protein Negative (Negative) Urine Ketones Negative (Negative) Urine Blood Negative /uL (Negative) Urine Nitrite Negative (Negative) Urine Bilirubin Negative (Negative) Urine Urobilinogen Normal mg/dL (Negative) Urine Leukocyte Esterase Negative /uL (Negative) Urine RBC <1 /hpf (0 - 3) Urine Microscopic WBC < 1 /HPF (0-3) Urine Squamous Epithelial Cells Few /hpf (<5) Urine Bacteria None seen /hpf (None Seen) Urine Glucose 2+ mg/dL (Normal) Influenza Type A Antigen Negative (Negative) Influenza Type B Antigen Negative (Negative) SARS-CoV-2 Antigen (Rapid) Negative (NEGATIVE) Other Laboratory Tests 11/28/24 05:27 11/26/24 05:48 Brief Hx & Hospital Course: 64-year-old morbidly obese male with multiple medical problems including congestive heart failure ischemic cardiomyopathy diabetes hypercholesterolemia depression sleep apnea history of heart valve repair in 2011 in [place] on Coumadin history of HI status post CABG in 2009 in [place] came in complaining of increasing shortness of breaths found to have acute exacerbation of NYHA class 4. Treated with Lasix Coreg Jardiance patient developed bradycardia. Amiodarone was temporarily stopped by the inter com servicer at the time of discharge patient on 3 L of oxygen. We will do ABG on room air to see if she qualifies for home oxygen. Advised patient has marginally improved and being discharged home. Reviewed all his home medications. He will follow up with the PCP Dr Wright and inter com servicer Dr. Nicholson. Flu test negative COVID test negative D- dimer normal chest x-ray negative DVT ruled out Consults/Reason for consult Cardiology Dr. Nicholson Operations or Procedures Echocardiogram Condition at Discharge: Fair Final Diagnosis/Problems List Acute hypoxic respiratory failure: Oxygen by nasal cannula Acute on chronic diastolic CHF exacerbation [place] heart Association class 4: Lasix Coreg , Jardiance consult by inter com servicer Dr. Nicholson appreciated, ejection fraction 55 % Ischemic cardiomyopathy: Amiodarone discontinued because of bradycardia First-degree heart block Uncontrolled diabetes: Insulin sliding scale Hypercholesterolemia: Lipitor Depression: Zoloft Sleep apnea Thrombocytopenia History of heart valve repair in 2011 in [place] on Coumadin History of HI status post CABG in 2009 in [place] History of coronary artery disease DVT ruled out Chest x-ray negative Flu test negative COVID negative D-dimer normal Discharge Disposition: Home Discharge Instruct/Medications Diet: Cardiac 2g Na,low cholest Activity: Light activity Follow Up/Referral: Follow up with your PCP in one week Follow up with the inter com servicer Dr. Nicholson in one week Stop amiodarone until you see Dr. Nicholson Increase bumetanide 2 times a day for one week then once a day Continue all other home medications Medications: None Reviewed all home medications 39 (Time taken for discharge summary 39 minutes) Discharge Statement: "Patient was advised to return to the ER or call 911 if any headaches, dizziness, shortness of breath, chest pain, abdominal pain, bleeding, fevers, or worsening of medical condition. Patient was counseled about treatment plan, medications, possible side effects, patientverbalized understanding. All questions were answered to the best of my ability. This discharge took greater then 30 minutes in planning, reviewing documentation, counseling the patient, and discussing with other team members." ASSESSMENT ASSESSMENT Hospital Course Marginally improved Assessment Acute hypoxic respiratory failure: Oxygen by nasal cannula Acute on chronic diastolic CHF exacerbation [place] heart Association class 4: Kendra Herr consult by inter com servicer Dr. Nicholson appreciated, ejection fraction 55 % Ischemic cardiomyopathy: Amiodarone discontinued because of bradycardia First-degree heart block Uncontrolled diabetes: Insulin sliding scale Hypercholesterolemia: Lipitor Depression: Zoloft Sleep apnea Thrombocytopenia History of heart valve repair in 2011 in [place] on Coumadin History of HI status post CABG in 2009 in [place] History of coronary artery disease DVT ruled out Chest x-ray negative Flu test negative COVID negative D-dimer normal Date of Service: Nov 28, 2024 Billing Provider: MAGED TARIQ MD Common Visit Codes: 21544-MSW/OBS DISCH DAY >30min MAGED TARIQ MD Nov 28, 2024 08:21
[2024-11-28] MEDS ORDERED: WARFARIN SODIUM 2.5 MG TAB PO ONE (17:00)
== END 2024-11-28 15:22 | disposition home or self-care (01) | DRG 291 ==
LOC: ER 13:52 → OVERFLOW 19:50 → CENTRAL 22:45 → TELE-CENTR 11-23 08:50
PROVIDERS: ADMIT Family Medicine; ATTEND Family Medicine
PROC: 5A09357 Assistance with Respiratory Ventilation, Less than 24 Consecutive Hours, Continuous Positive Airway Pressure (ICD-10-PCS; principal; 2024-11-23)
PROC: 5A09357 Assistance with Respiratory Ventilation, Less than 24 Consecutive Hours, Continuous Positive Airway Pressure (ICD-10-PCS; 2024-11-24)
DX: I11.0 Hypertensive heart disease with heart failure (principal); I50.33 Acute on chronic diastolic (congestive) heart failure; J96.01 Acute respiratory failure with hypoxia; D68.9 Coagulation defect, unspecified; N17.9 Acute kidney failure, unspecified; Z68.41 Body mass index [BMI] 40.0-44.9, adult; Z95.1 Presence of aortocoronary bypass graft; Z20.822 Contact with and (suspected) exposure to COVID-19; E78.00 Pure hypercholesterolemia, unspecified; I25.5 Ischemic cardiomyopathy; E11.9 Type 2 diabetes mellitus without complications; I44.0 Atrioventricular block, first degree; D69.6 Thrombocytopenia, unspecified; F32.A Depression, unspecified; R00.1 Bradycardia, unspecified; E66.01 Morbid (severe) obesity due to excess calories; I25.10 Atherosclerotic heart disease of native coronary artery without angina pectoris; G47.30 Sleep apnea, unspecified; Z79.01 Long term (current) use of anticoagulants; Z86.718 Personal history of other venous thrombosis and embolism; Z82.49 Family history of ischemic heart disease and other diseases of the circulatory system; Z80.1 Family history of malignant neoplasm of trachea, bronchus and lung; Z88.8 Allergy status to other drugs, medicaments and biological substances; Z91.040 Latex allergy status; Z79.899 Other long term (current) drug therapy; I25.2 Old myocardial infarction; Z95.5 Presence of coronary angioplasty implant and graft
CPT/HCPCS: 36415; 36600; 71045; 71046; 80048; 80053; 80061; 80307; 81001; 82565; 82805; 82962; 83735; 83880; 84443; 84484; 85025; 85379; 85610; 85730; 87426; 87804; 93005; 93306; 93970; 94660; 97110; 97116; 97163; 97530; 99291; G0378; J1815; J2470